=== PATIENT | female | born 1960 | race Two or more races ===

== ENCOUNTER 2024-05-06 11:16 | Inpatient (IN) | payer MEDICAID, OTHER ==
[~2024-05-06] VITALS: Ht 167.6 cm; Wt 79.3 kg
[2024-05-06 12:17] LABS: Basophils # (auto) 0.1 10 ^3/uL (0-0.2); Basophils % (auto) 1.1 % (0.0-2.0); Eosinophils # (auto) 0.4 10 ^3/uL (0-0.8); Eosinophils % (auto) 5.7 % (0.0-7.0); Hemoglobin 10.3 g/dL (12.2-16.2); Lymphocytes # (auto) 1.3 10 ^3/uL (0.4-5.4); Lymphocytes % (auto) 20.9 % (10.0-50.0); Mean Corpuscular Hemoglobin 29.7 pg (28.0-32.0); Mean Corpuscular Hgb Conc. 35.5 g/dL (32.0-36.0); Mean Corpuscular Volume 83.5 fL (80.0-100.0); Monocytes # (auto) 0.3 10 ^3/uL (0-1.3); Monocytes % (auto) 4.6 % (0.0-12.0); Neutrophils # (auto) 4.2 10 ^3/uL (1.6-8.6); Neutrophils % (auto) 67.7 % (37.0-80.0); Red Blood Cells 3.48 10^6/uL (4.0-5.20); Red Cell Distribution Width 14.4 % (11.8-14.3); White Blood Cell 6.2 10^3/uL (4.4-10.8)
[2024-05-06 12:51] LABS: Alanine Aminotransferase 19 U/L (7-40); Albumin 2.9 g/dL (3.2-4.8); Alkaline Phosphatase 172 U/L (46-116); Anion Gap 4 (5-15); Aspartate Aminotransferase 17 U/L (13-40); BUN/Creatinine Ratio 13.6 (10.0-20.0); Bilirubin, Total 0.8 mg/dL (0.2-1.0); Blood Urea Nitrogen 25 mg/dL (9-23); CRP High Sensitivity 0.08 mg/dL (<1.0); Calcium 8.5 mg/dL (8.5-10.1); Carbon Dioxide 28 mmol/L (20-30); Chloride 105 mmol/L (98-107); Erythrocyte Sedimentation Rate 70 mm/hr (0-20); Glucose 346 mg/dL (74-106); Potassium 4.4 mmol/L (3.5-5.1); Sodium 137 mmol/L (136-145)
[2024-05-06 12:52] LABS: Total Protein 5.1 g/dL (5.7-8.2)
[2024-05-06] MEDS: FUROSEMIDE 40 MG/4 ML VIAL IV ONE (14:15)
[2024-05-06] MEDS: NITROGLYCERIN 0.4 MG SL TAB SL ONE (14:31)
[2024-05-06] MEDS: hydrALAZINE HCL 20 MG/ML VL IV ONE (15:58)
[2024-05-06] MEDS ORDERED: DEXTROSE (50%) 50ML SYRG IV PRN (18:00)
[2024-05-06] MEDS ORDERED: ONDANSETRON HCL 4 MG/2 ML VIAL IV PRN (18:00)
[2024-05-06] MEDS ORDERED: HYDROcodone-ACET 5/325MG TAB PO PRN (18:00)
[2024-05-06] MEDS ORDERED: ACETAMINOPHEN 325 MG TAB PO PRN (18:00)
[2024-05-06] MEDS ORDERED: MORPHINE SULFATE INJ 2 MG/ml SYRG IV PRN (18:15)
[2024-05-06] MEDS ORDERED: NITROGLYCERIN 0.4 MG SL TAB SL PRN (18:15)
[2024-05-06] MEDS: ACCU-CHEK COMFORT CURVE STRIP VI SCH (20:00)
[2024-05-06] MEDS ORDERED: InsuLIN REG 1unit/0.01ml Soln (100units/ml) SC SCH (20:00)
[2024-05-06] MEDS ORDERED: IBUPROFEN 600 MG TAB PO PRN (20:15)
[2024-05-06 20:56] VITALS: PULSE 89; RESP 20; O2SAT 98
[2024-05-06] MEDS: METOPROLOL TARTRATE 25 MG TAB PO SCH (22:12)
[2024-05-06] MEDS: SODIUM CHLOR 0.9% PF (SALINE LOCK) 10ML VIAL/SYR IV SCH (22:13)
[2024-05-06] MEDS: ATORVASTATIN 20 MG TAB PO SCH (22:13)
[2024-05-06] MEDS ORDERED: AMLO1TAB23 PO (22:24)
[2024-05-06] MEDS ORDERED: BENA40TA83 PO (22:24)
[2024-05-06] MEDS ORDERED: FURO20TA3 PO (22:24)
[2024-05-06 22:25] VITALS: BP 214/63; PULSE 79; RESP 22; TEMP 98.2; O2SAT 99
[2024-05-06] MEDS ORDERED: METF-370 PO (22:26)
[2024-05-06 22:54] VITALS: BP 152/57
[2024-05-06] MEDS: InsuLIN REG 1unit/0.01ml Soln (100units/ml) SC SCH (23:10)
[2024-05-07] VITALS (10 sets, daily range): BP systolic 124–197; BP diastolic 56–79; PULSE 50–66; RESP 18–20; TEMP 97.5–98.1; O2SAT 96–99
[2024-05-07] MEDS: hydrALAZINE HCL 20 MG/ML VL IV PRN (01:20)
[2024-05-07] MEDS: hydrALAZINE HCL 20 MG/ML VL IV ONE (02:15)
[2024-05-07] MEDS: cloNIDine HCL 0.1 MG TAB PO ONE (05:57)
[2024-05-07 06:19] LABS: Basophils # (auto) 0.1 10 ^3/uL (0-0.2); Basophils % (auto) 0.9 % (0.0-2.0); Eosinophils # (auto) 0.5 10 ^3/uL (0-0.8); Eosinophils % (auto) 6.7 % (0.0-7.0); Hematocrit 28.5 % (36.0-46.0); Hemoglobin 10.3 g/dL (12.2-16.2); Lymphocytes # (auto) 1.3 10 ^3/uL (0.4-5.4); Lymphocytes % (auto) 16.5 % (10.0-50.0); Mean Corpuscular Hemoglobin 29.9 pg (28.0-32.0); Mean Corpuscular Hgb Conc. 36.2 g/dL (32.0-36.0); Mean Corpuscular Volume 82.6 fL (80.0-100.0); Monocytes # (auto) 0.5 10 ^3/uL (0-1.3); Monocytes % (auto) 5.9 % (0.0-12.0); Neutrophils # (auto) 5.4 10 ^3/uL (1.6-8.6); Nucleated Red Blood Cells % 0.1 %; Red Blood Cells 3.45 10^6/uL (4.0-5.20); Red Cell Distribution Width 14.4 % (11.8-14.3); White Blood Cell 7.7 10^3/uL (4.4-10.8)
[2024-05-07 06:31] LABS: Alanine Aminotransferase 14 U/L (7-40); Albumin 2.9 g/dL (3.2-4.8); Alkaline Phosphatase 151 U/L (46-116); Anion Gap 7 (5-15); Aspartate Aminotransferase 12 U/L (13-40); BUN/Creatinine Ratio 13.3 (10.0-20.0); Bilirubin, Total 0.8 mg/dL (0.2-1.0); Blood Urea Nitrogen 20 mg/dL (9-23); Carbon Dioxide 27 mmol/L (20-30); Chloride 108 mmol/L (98-107); Glucose 127 mg/dL (74-106); Potassium 3.4 mmol/L (3.5-5.1); Sodium 142 mmol/L (136-145); Total Protein 5.4 g/dL (5.7-8.2)
[2024-05-07] MEDS: ASPirin 81 mg TAB PO SCH (10:02)
[2024-05-07] MEDS: amLODIPine BESYLATE 5 MG TAB PO SCH (10:02)
[2024-05-07] MEDS: POTASSIUM EFFERVESENT TAB 25 MEQ GT ONE (10:04)
[2024-05-07] MEDS: FUROSEMIDE 40 MG/4 ML VIAL IV SCH ×2 (10:05→22:53)
[2024-05-07 11:42] LABS: % Iron Saturation 26.4 % (15-50)
[2024-05-07] MEDS: ERGOCALCIFEROL 50,000 UNIT(1.25MG) CAP PO SCH (11:45)
[2024-05-07 13:31] LABS: Urine Bacteria None Seen /hpf (None Seen)
[2024-05-07 13:44] LABS: Urine Blood Negative /uL (Negative); Urine Clarity Clear (Clear); Urine Color Light-Yellow (Yellow); Urine Protein, UAD 2+ (Negative); Urine Specific Gravity 1.007 (1.001-1.035); Urine Urobilinogen Normal (Negative); Urine WBC 3 /hpf (0 - 5)
[2024-05-07 13:49] LABS: Sodium Urine 97 mmol/L (40-220)
[2024-05-07 13:55] LABS: Amphetamine Screen, Urine Neg (NEGATIVE); Barbiturate Scree,Urine Neg (NEGATIVE); Benzodiazephine Screen, Urine Neg (NEGATIVE)
[2024-05-07 13:56] LABS: Cannabinoid Screen, Urine Neg (NEGATIVE); Cocaine Screen, Urine Neg (NEGATIVE); Creatinine, Urine 27.43 mg/dL (30.0-125.0); Opiate Scree,Urine Neg (NEGATIVE); Phencyclidine Screen, Urine Neg (NEGATIVE)
[2024-05-07 14:00] LABS: Protein, Urine 304.5 mg/dL (0.0-11.9)
[2024-05-07] MEDS: COLCHICINE 0.6 MG CAP PO SCH (22:00)
[2024-05-07] MEDS: DOCUSATE SOD 100 MG CAP PO PRN (22:41)
[2024-05-08 01:00] VITALS: BP 148/61; PULSE 61; RESP 18; TEMP 97.6; O2SAT 99
[2024-05-08 05:00] VITALS: BP 139/50; PULSE 58; RESP 18; TEMP 97.8; O2SAT 96
[2024-05-08 06:08] LABS: Anion Gap 5 (5-15); Calcium 8.7 mg/dL (8.5-10.1); Carbon Dioxide 28 mmol/L (20-30); Chloride 107 mmol/L (98-107); Potassium 3.5 mmol/L (3.5-5.1); Sodium 140 mmol/L (136-145)
[2024-05-08 06:14] LABS: BUN/Creatinine Ratio 15.4 (10.0-20.0); Blood Urea Nitrogen 23 mg/dL (9-23); Glucose 96 mg/dL (74-106)
[2024-05-08 06:26] LABS: Basophils # (auto) 0.1 10 ^3/uL (0-0.2); Eosinophils # (auto) 0.6 10 ^3/uL (0-0.8); Eosinophils % (auto) 8.7 % (0.0-7.0); Hematocrit 26.6 % (36.0-46.0); Hemoglobin 9.5 g/dL (12.2-16.2); Lymphocytes # (auto) 1.8 10 ^3/uL (0.4-5.4); Lymphocytes % (auto) 27.3 % (10.0-50.0); Mean Corpuscular Hemoglobin 29.6 pg (28.0-32.0); Mean Corpuscular Hgb Conc. 35.6 g/dL (32.0-36.0); Mean Corpuscular Volume 83.2 fL (80.0-100.0); Monocytes # (auto) 0.3 10 ^3/uL (0-1.3); Neutrophils # (auto) 3.9 10 ^3/uL (1.6-8.6); Nucleated Red Blood Cells % 0.1 %; Red Cell Distribution Width 14.5 % (11.8-14.3); White Blood Cell 6.7 10^3/uL (4.4-10.8)
[2024-05-08 09:00] VITALS: BP 164/62; PULSE 61; RESP 18; TEMP 97.6; O2SAT 100
[2024-05-08] MEDS: VALSARTAN 80 MG TAB PO SCH (09:04)
[2024-05-08 09:18] LABS: Hepatitis B Surface Antigen Negative (Negative)
[2024-05-08 09:40] LABS: Hepatitis C Antibody Negative (Negative)
[2024-05-08] MEDS: TAMSULOSIN HYDROCHLORIDE 0.4 MG CAP PO ONE (11:15)
[2024-05-08] MEDS: VALSARTAN 80 MG TAB PO ONE (11:15)
[2024-05-08] MEDS: diphenhdrAMINE HCL 50 MG/1 ML VL IV PRN (12:05)
[2024-05-08 13:00] VITALS: BP 179/60; PULSE 55; RESP 18; TEMP 97.5; O2SAT 100
[2024-05-08 17:00] VITALS: BP 138/48; PULSE 65; RESP 18; TEMP 97.4; O2SAT 100
[2024-05-08] MEDS: TAMSULOSIN HYDROCHLORIDE 0.4 MG CAP PO SCH (17:52)
[2024-05-08 21:00] VITALS: BP 128/61; PULSE 66; RESP 20; TEMP 97.5; O2SAT 97
[2024-05-08] MEDS: CARVEDILOL 3.125 MG TAB PO SCH (22:57)
[2024-05-09] VITALS (7 sets, daily range): BP systolic 118–152; BP diastolic 41–69; PULSE 50–71; RESP 18–19; TEMP 36.7; O2SAT 90–99
[2024-05-09 06:31] LABS: Basophils # (auto) 0.1 10 ^3/uL (0-0.2); Basophils % (auto) 1.1 % (0.0-2.0); Eosinophils # (auto) 0.5 10 ^3/uL (0-0.8); Eosinophils % (auto) 6.9 % (0.0-7.0); Hematocrit 28.7 % (36.0-46.0); Hemoglobin 10.2 g/dL (12.2-16.2); Lymphocytes % (auto) 28.9 % (10.0-50.0); Mean Corpuscular Hemoglobin 29.7 pg (28.0-32.0); Mean Corpuscular Hgb Conc. 35.6 g/dL (32.0-36.0); Mean Corpuscular Volume 83.4 fL (80.0-100.0); Monocytes # (auto) 0.4 10 ^3/uL (0-1.3); Monocytes % (auto) 5.4 % (0.0-12.0); Neutrophils # (auto) 4.1 10 ^3/uL (1.6-8.6); Neutrophils % (auto) 57.7 % (37.0-80.0); Nucleated Red Blood Cells % 0.4 %; Red Blood Cells 3.44 10^6/uL (4.0-5.20)
[2024-05-09 06:50] LABS: Anion Gap 7 (5-15); Calcium 8.4 mg/dL (8.5-10.1); Carbon Dioxide 28 mmol/L (20-30); Chloride 102 mmol/L (98-107); Potassium 3.5 mmol/L (3.5-5.1); Sodium 137 mmol/L (136-145)
[2024-05-09 06:56] LABS: BUN/Creatinine Ratio 17.3 (10.0-20.0); Blood Urea Nitrogen 30 mg/dL (9-23); Glucose 128 mg/dL (74-106); Triglycerides 145 mg/dL (< 150)
[2024-05-09 06:57] LABS: LDL Cholesterol 99 mg/dL (< 100)
[2024-05-09 06:58] LABS: Cholesterol 175 mg/dL (< 200); HDL Cholesterol 47 mg/dL (40-59)
[2024-05-09] MEDS: VALSARTAN 80 MG TAB PO SCH (08:41)
[2024-05-09 11:28] LABS: Folate (Folic Acid) 11.55 ng/mL (>5.38)
[2024-05-09] MEDS ORDERED: FURO40TA4 PO (13:20)
[2024-05-09] MEDS ORDERED: ATOR20TA50 PO (13:20)
[2024-05-09] MEDS ORDERED: ASPI-325 PO (13:20)
[2024-05-09] MEDS ORDERED: TAMS-35 PO (13:20)
[2024-05-09] MEDS ORDERED: CARV-214 PO (13:20)
[2024-05-09] MEDS ORDERED: ERGO1CAP23 PO (13:20)
[2024-05-09] MEDS ORDERED: VALS1TAB57 PO (13:20)
== END 2024-05-09 12:30 | disposition home or self-care (01) | DRG 194 ==
LOC: ER 11:16 → TELE 18:17 → TELE-WESTW 18:17 → UNDODEPER 05-07 00:25 → WEST WING 05-08 00:08
PROVIDERS: ADMIT Internal Medicine; ATTEND Emergency Medicine
DX: I11.0 Hypertensive heart disease with heart failure (principal); N17.0 Acute kidney failure with tubular necrosis; I31.39 Other pericardial effusion (noninflammatory); E44.0 Moderate protein-calorie malnutrition; E88.09 Other disorders of plasma-protein metabolism, not elsewhere classified; E11.21 Type 2 diabetes mellitus with diabetic nephropathy; D64.9 Anemia, unspecified; E11.65 Type 2 diabetes mellitus with hyperglycemia; I16.0 Hypertensive urgency; I50.31 Acute diastolic (congestive) heart failure; N20.0 Calculus of kidney; E55.9 Vitamin D deficiency, unspecified; E87.6 Hypokalemia; E78.5 Hyperlipidemia, unspecified; Z83.3 Family history of diabetes mellitus; Z79.899 Other long term (current) drug therapy; Z68.27 Body mass index [BMI] 27.0-27.9, adult
CPT/HCPCS: 36415; 71045; 76775; 80048; 80053; 80061; 80307; 81001; 82306; 82570; 82607; 82728; 82746; 82962; 83036; 83540; 83550; 83605; 83735; 83880; 83935; 84156; 84300; 84443; 84484; 85025; 85652; 86141; 86803; 86850; 86900; 86901; 87340; 93306; 93970; 96374; 96375; 96376; G0378; J1815

== ENCOUNTER 2024-08-05 13:45 | Emergency (ER) | payer SELFPAY ==
[~2024-08-05] VITALS: Ht 160 cm; Wt 81.9 kg
[~2024-08-05 13:45] MED LIST: ASPI-325 PO; ATOR20TA50 PO; BENA40TA83 PO; CARV-214 PO; ERGO1CAP23 PO; FURO40TA4 PO; METF-370 PO; TAMS-35 PO; VALS1TAB57 PO
[2024-08-05] MEDS: cloNIDine HCL 0.1 MG TAB PO ONE (14:18)
[2024-08-05 14:26] VITALS: PULSE 67; RESP 16; O2SAT 97
[2024-08-05 15:13] LABS: Basophils # (auto) 0.1 10 ^3/uL (0-0.2); Basophils % (auto) 0.9 % (0.0-2.0); Eosinophils # (auto) 0.4 10 ^3/uL (0-0.8); Hematocrit 25.8 % (36.0-46.0); Hemoglobin 9.1 g/dL (12.2-16.2); Lymphocytes # (auto) 1.1 10 ^3/uL (0.4-5.4); Lymphocytes % (auto) 18.6 % (10.0-50.0); Mean Corpuscular Hemoglobin 30.6 pg (28.0-32.0); Mean Corpuscular Hgb Conc. 35.4 g/dL (32.0-36.0); Mean Corpuscular Volume 86.5 fL (80.0-100.0); Monocytes # (auto) 0.4 10 ^3/uL (0-1.3); Neutrophils # (auto) 4.1 10 ^3/uL (1.6-8.6); Neutrophils % (auto) 67.5 % (37.0-80.0); Platelet Count (auto) 133 10^3/uL (140-450); Red Blood Cells 2.99 10^6/uL (4.0-5.20)
[2024-08-05 15:31] LABS: Chloride 109 mmol/L (98-107); Potassium 4.1 mmol/L (3.5-5.1); Sodium 143 mmol/L (136-145)
[2024-08-05 15:32] LABS: Anion Gap 5 (5-15); Calcium 8.3 mg/dL (8.7-10.4); Carbon Dioxide 29 mmol/L (20-31)
[2024-08-05 15:37] LABS: BUN/Creatinine Ratio 14.1 (10.0-20.0); Blood Urea Nitrogen 26 mg/dL (9-23); Glucose 132 mg/dL (74-106)
[2024-08-05 16:19] VITALS: BP 171/54; PULSE 63; RESP 18; O2SAT 94
== END 2024-08-05 16:34 | disposition home or self-care (01) ==
LOC: ER 13:45
DX: I16.0 Hypertensive urgency (principal); E11.9 Type 2 diabetes mellitus without complications; E78.5 Hyperlipidemia, unspecified; Z79.899 Other long term (current) drug therapy; Z79.82 Long term (current) use of aspirin
CPT/HCPCS: 36415; 80048; 85025

== ENCOUNTER 2024-08-12 08:55 | Inpatient (IN) | payer MEDICAID ==
[~2024-08-12] VITALS: Ht 160 cm; Wt 83.0 kg
[2024-08-12 10:30] LABS: Alkaline Phosphatase 130 U/L (46-116)
[2024-08-12 10:31] LABS: Alanine Aminotransferase 17 U/L (7-40); Albumin 3.3 g/dL (3.2-4.8); Anion Gap 2 (5-15); Aspartate Aminotransferase 22 U/L (13-40); BUN/Creatinine Ratio 11.5 (10.0-20.0); Bilirubin, Total 1.3 mg/dL (0.2-1.0); Blood Urea Nitrogen 22 mg/dL (9-23); Calcium 8.6 mg/dL (8.7-10.4); Carbon Dioxide 30 mmol/L (20-31); Chloride 108 mmol/L (98-107); Glucose 190 mg/dL (74-106); Lipase 31 U/L (12-53); Potassium 4.1 mmol/L (3.5-5.1); Sodium 140 mmol/L (136-145); Total Protein 5.7 g/dL (5.7-8.2)
[2024-08-12 10:33] LABS: Basophils # (auto) 0.1 10 ^3/uL (0-0.2); Basophils % (auto) 0.9 % (0.0-2.0); Eosinophils # (auto) 0.3 10 ^3/uL (0-0.8); Eosinophils % (auto) 5.7 % (0.0-7.0); Hematocrit 27.7 % (36.0-46.0); Hemoglobin 9.9 g/dL (12.2-16.2); Lymphocytes # (auto) 0.9 10 ^3/uL (0.4-5.4); Lymphocytes % (auto) 16.4 % (10.0-50.0); Mean Corpuscular Hgb Conc. 35.9 g/dL (32.0-36.0); Mean Corpuscular Volume 86.3 fL (80.0-100.0); Monocytes # (auto) 0.3 10 ^3/uL (0-1.3); Neutrophils # (auto) 4.1 10 ^3/uL (1.6-8.6); Platelet Count (auto) 170 10^3/uL (140-450); Red Blood Cells 3.21 10^6/uL (4.0-5.20); Red Cell Distribution Width 14.6 % (11.8-14.3); White Blood Cell 5.7 10^3/uL (4.4-10.8)
[2024-08-12] MEDS: NITROGLYCERIN 0.4 MG SL TAB SL ONE (10:42)
[2024-08-12] MEDS: hydrALAZINE HCL 20 MG/ML VL IV ONE (12:39)
[2024-08-12 12:58] LABS: Urine Bacteria None Seen /hpf (None Seen)
[2024-08-12 13:30] LABS: Urine Blood 2+ /uL (Negative); Urine Clarity Clear (Clear); Urine Color Light-Yellow (Yellow); Urine Protein, UAD 3+ (Negative); Urine Urobilinogen Normal (Negative); Urine WBC 19 /hpf (0 - 5)
[2024-08-12] MEDS: FUROSEMIDE 40 MG/4 ML VIAL IV ONE (13:33)
[2024-08-12] MEDS ORDERED: MORPHINE SULFATE INJ 2 MG/ml SYRG IV PRN (15:00)
[2024-08-12] MEDS ORDERED: DEXTROSE (50%) 50ML SYRG IV PRN (15:00)
[2024-08-12] MEDS ORDERED: NITROGLYCERIN 0.4 MG SL TAB SL PRN (15:00)
[2024-08-12] MEDS: ACCU-CHEK COMFORT CURVE STRIP VI SCH (17:21)
[2024-08-12] MEDS: InsuLIN REG 1unit/0.01ml Soln (100units/ml) SC SCH (17:24)
[2024-08-12] MEDS: FUROSEMIDE 40 MG/4 ML VIAL IV SCH (17:25)
[2024-08-12] MEDS: hydrALAZINE HCL 20 MG/ML VL IV PRN (17:45)
[2024-08-12 18:28] VITALS: BP 183/80; PULSE 80; PULSE 81; PULSE 86; RESP 18; RESP 20; TEMP 97.3; TEMP 97.9; O2SAT 97; O2SAT 98
[2024-08-12] MEDS: NIFEdipine ER 30 MG TAB PO ONE (19:09)
[2024-08-12] MEDS: PANTOPRAZOLE 40 MG TAB PO ONE (19:09)
[2024-08-12 19:34] LABS: Erythrocyte Sedimentation Rate 51 mm/hr (0-20)
[2024-08-12 20:00] VITALS: PULSE 85; RESP 18; O2SAT 97
[2024-08-12 20:51] LABS: Magnesium 2.2 mg/dL (1.6-2.6)
[2024-08-12 20:52] LABS: Phosphorus 4.3 mg/dL (2.4-5.1)
[2024-08-12 21:00] VITALS: BP 161/72; PULSE 85; RESP 18; TEMP 97.6; O2SAT 97
[2024-08-12 21:33] LABS: % Iron Saturation 28.5 % (15-50)
[2024-08-12] MEDS ORDERED: LABETALOL HCL 200 MG TAB PO SCH (22:00)
[2024-08-12] MEDS: cloNIDine HCL 0.1 MG TAB PO SCH (22:41)
[2024-08-13] VITALS (9 sets, daily range): BP systolic 134–164; BP diastolic 59–78; PULSE 65–78; RESP 17–18; TEMP 96.6–98.5; O2SAT 93–96
[2024-08-13] MEDS: PANTOPRAZOLE 40 MG TAB PO SCH (05:18)
[2024-08-13 06:10] LABS: Chloride 108 mmol/L (98-107); Potassium 3.8 mmol/L (3.5-5.1); Sodium 140 mmol/L (136-145)
[2024-08-13 06:11] LABS: Anion Gap 6 (5-15); Calcium 8.7 mg/dL (8.7-10.4); Carbon Dioxide 26 mmol/L (20-31)
[2024-08-13 06:16] LABS: BUN/Creatinine Ratio 12.1 (10.0-20.0); Blood Urea Nitrogen 24 mg/dL (9-23); Glucose 141 mg/dL (74-106)
[2024-08-13] MEDS: NIFEdipine ER 30 MG TAB PO SCH (09:16)
[2024-08-13] MEDS ORDERED: NIFEdipine ER 30 MG TAB PO SCH (10:00)
[2024-08-13] MEDS: POTASSIUM CHL 10 Meq TABLET PO SCH (10:39)
[2024-08-13] MEDS: FUROSEMIDE 40 MG/4 ML VIAL IV SCH (17:20)
[2024-08-13] MEDS: cloNIDine HCL 0.1 MG TAB PO SCH (22:38)
[2024-08-14] VITALS (11 sets, daily range): BP systolic 118–152; BP diastolic 52–71; PULSE 59–78; RESP 16–18; TEMP 97.4–98.3; O2SAT 92–98
[2024-08-14 07:33] LABS: Chloride 108 mmol/L (98-107); Sodium 140 mmol/L (136-145)
[2024-08-14 07:34] LABS: Anion Gap 6 (5-15); Calcium 8.6 mg/dL (8.7-10.4); Carbon Dioxide 26 mmol/L (20-31)
[2024-08-14 07:39] LABS: BUN/Creatinine Ratio 11.2 (10.0-20.0); Blood Urea Nitrogen 29 mg/dL (9-23); Glucose 93 mg/dL (74-106)
[2024-08-14 08:46] LABS: Hepatitis B Surface Antigen Negative (Negative)
[2024-08-14 09:08] LABS: Hepatitis C Antibody Negative (Negative)
[2024-08-14] MEDS: ALBUTEROL SULF 2.5 MG/0.5ML(0.5%) NEB SOLN NEB SCH (18:51)
[2024-08-14] MEDS: IPRATROPIUM BROM 0.5 MG/2.5ML INH SOL NEB SCH (18:51)
[2024-08-15] VITALS (13 sets, daily range): BP systolic 144–171; BP diastolic 57–80; PULSE 57–86; RESP 15–18; TEMP 97.7–98.3; O2SAT 17–100
[2024-08-15] MEDS ORDERED: FUROSEMIDE 20 MG/2 ML VIAL IV SCH (10:00)
[2024-08-15] MEDS: FUROSEMIDE 20 MG TAB PO SCH (10:56)
[2024-08-15 12:25] LABS: Anion Gap 6 (5-15); Carbon Dioxide 27 mmol/L (20-31); Chloride 108 mmol/L (98-107); Potassium 4.5 mmol/L (3.5-5.1); Sodium 141 mmol/L (136-145)
[2024-08-15 12:26] LABS: Calcium 8.2 mg/dL (8.7-10.4)
[2024-08-15 12:31] LABS: BUN/Creatinine Ratio 12.5 (10.0-20.0); Blood Urea Nitrogen 33 mg/dL (9-23); Glucose 148 mg/dL (74-106)
[2024-08-15] MEDS: FUROSEMIDE 100 MG/10ML VIAL IV SCH (17:34)
[2024-08-16] VITALS (14 sets, daily range): BP systolic 148–166; BP diastolic 57–63; PULSE 82–96; RESP 14–19; TEMP 97.6–98.7; O2SAT 90–100
[2024-08-16] MEDS: hydrALAZINE HCL 25 MG TAB PO SCH (23:30)
[2024-08-17] VITALS (19 sets, daily range): BP systolic 145–166; BP diastolic 35–65; PULSE 84–105; RESP 14–19; TEMP 97.7–98.2; O2SAT 90–99
[2024-08-17 05:39] LABS: Anion Gap 7 (5-15); Carbon Dioxide 26 mmol/L (20-31); Chloride 110 mmol/L (98-107); Potassium 4.1 mmol/L (3.5-5.1); Sodium 143 mmol/L (136-145)
[2024-08-17 05:41] LABS: Calcium 8.5 mg/dL (8.7-10.4)
[2024-08-17 05:45] LABS: Blood Urea Nitrogen 33 mg/dL (9-23); Glucose 120 mg/dL (74-106)
[2024-08-17] MEDS: NIFEdipine ER 30 MG TAB PO SCH (10:47)
[2024-08-17 20:49] LABS: Creatinine, Urine 61.42 mg/dL (30.0-125.0)
[2024-08-17 20:52] LABS: Protein, Urine 475.5 mg/dL (1-14)
[2024-08-17] MEDS: hydrALAZINE HCL 25 MG TAB PO SCH (20:52)
[2024-08-18] VITALS (13 sets, daily range): BP systolic 140–153; BP diastolic 50–61; PULSE 80–94; RESP 8–20; TEMP 97.8–98.2; O2SAT 90–100
[2024-08-18 07:21] LABS: Anion Gap 7 (5-15); Carbon Dioxide 26 mmol/L (20-31); Chloride 110 mmol/L (98-107); Potassium 4.2 mmol/L (3.5-5.1); Sodium 143 mmol/L (136-145)
[2024-08-18 07:23] LABS: Calcium 8.7 mg/dL (8.7-10.4)
[2024-08-18 07:24] LABS: INR 1.08 (0.9-1.15); Partial Thromboplastin Time 28.8 SEC (24.5-34.5); Prothrombin Time 11.4 sec (9.3-11.8)
[2024-08-18 07:28] LABS: BUN/Creatinine Ratio 12.3 (10.0-20.0); Blood Urea Nitrogen 34 mg/dL (9-23); Glucose 101 mg/dL (74-106)
[2024-08-18] MEDS: LIDOCAINE 2%HCL (LOCAL ANESTH.) INJ 10ml MDV ONE (07:45)
[2024-08-18 08:06] LABS: Complement C3 95 mg/dL (82-167); Immunoglobulin A 325 mg/dL (87-352); Immunoglobulin G, Serum 819 mg/dL (586-1602); Immunoglobulin M 155 mg/dL (26-217)
[2024-08-18] MEDS: MIDAZOLAM HCL 2MG/2ML 2ml VIAL (1mg/ml) ONE (08:09)
[2024-08-18] MEDS: fentaNYL CITRATE 100 MCG/2 ML VL ONE (08:09)
[2024-08-19] VITALS (14 sets, daily range): BP systolic 139–161; BP diastolic 46–76; PULSE 89–103; RESP 8–28; TEMP 97.6–99.3; O2SAT 88–100
[2024-08-19 07:06] LABS: Albumin 2.4 g/dL (2.9-4.4); Alpha-1-Globulin 0.3 g/dL (0.0-0.4); Alpha-2-Globulin 0.6 g/dL (0.4-1.0); Gamma Globulin 0.9 g/dL (0.4-1.8); Globulin Total 2.8 g/dL (2.2-3.9); Protein Total Serum 5.2 g/dL (6.0-8.5)
[2024-08-19 08:04] LABS: Chloride 111 mmol/L (98-107); Potassium 4.5 mmol/L (3.5-5.1); Sodium 145 mmol/L (136-145)
[2024-08-19 08:05] LABS: Anion Gap 8 (5-15); Calcium 8.5 mg/dL (8.7-10.4); Carbon Dioxide 26 mmol/L (20-31)
[2024-08-19 08:10] LABS: BUN/Creatinine Ratio 15.9 (10.0-20.0); Blood Urea Nitrogen 41 mg/dL (9-23); Glucose 108 mg/dL (74-106)
[2024-08-19 15:07] LABS: Anti-Centromere B Antibody <0.2 AI (0.0-0.9); Anti-Jo-1 Antibody <0.2 AI (0.0-0.9); Anti-dsDNA Antibody <1 IU/mL (0-9); Antichromatin Antibody <0.2 AI (0.0-0.9); Antiscleroderma-70 Antibody <0.2 AI (0.0-0.9); RNP Antibody <0.2 AI (0.0-0.9); Sjogren's Anti-SS-A Antibody <0.2 AI (0.0-0.9); Sjogren's Anti-SS-B Antibody <0.2 AI (0.0-0.9); Smith Antibody <0.2 AI (0.0-0.9)
[2024-08-19 17:06] LABS: Antimyeloperoxidase (MPO) Ab <0.2 units (0.0-0.9); Antiproteinase 3 (PR-3) Ab <0.2 units (0.0-0.9)
[2024-08-19 18:11] LABS: Basophils # (auto) 0.1 10 ^3/uL (0-0.2); Basophils % (auto) 1.1 % (0.0-2.0); Eosinophils # (auto) 0.2 10 ^3/uL (0-0.8); Eosinophils % (auto) 2.4 % (0.0-7.0); Hematocrit 28.3 % (36.0-46.0); Hemoglobin 9.7 g/dL (12.2-16.2); Lymphocytes % (auto) 16.4 % (10.0-50.0); Mean Corpuscular Hemoglobin 30.5 pg (28.0-32.0); Mean Corpuscular Hgb Conc. 34.5 g/dL (32.0-36.0); Mean Corpuscular Volume 88.4 fL (80.0-100.0); Monocytes # (auto) 0.4 10 ^3/uL (0-1.3); Monocytes % (auto) 6.2 % (0.0-12.0); Neutrophils # (auto) 4.7 10 ^3/uL (1.6-8.6); Neutrophils % (auto) 73.9 % (37.0-80.0); Nucleated Red Blood Cells % 0.1 %; Platelet Count (auto) 155 10^3/uL (140-450); Red Cell Distribution Width 14.6 % (11.8-14.3); White Blood Cell 6.4 10^3/uL (4.4-10.8)
[2024-08-19] MEDS: hydrALAZINE HCL 25 MG TAB PO SCH (23:33)
[2024-08-20] VITALS (11 sets, daily range): BP systolic 129–161; BP diastolic 58–65; PULSE 80–93; RESP 16–20; TEMP 97.8–98.3; O2SAT 95–100
[2024-08-20 05:37] LABS: Anion Gap 8 (5-15); Carbon Dioxide 28 mmol/L (20-31); Chloride 108 mmol/L (98-107); Potassium 4.1 mmol/L (3.5-5.1); Sodium 144 mmol/L (136-145)
[2024-08-20 05:39] LABS: Calcium 8.7 mg/dL (8.7-10.4)
[2024-08-20 05:43] LABS: BUN/Creatinine Ratio 13.4 (10.0-20.0); Blood Urea Nitrogen 35 mg/dL (9-23); Glucose 105 mg/dL (74-106)
[2024-08-20 09:06] LABS: Kappa Lite Chain Free Serum 90.6 mg/L (3.3-19.4)
[2024-08-20 12:06] LABS: Cytoplasmic (C-ANCA) <1:20 titer (Neg:<1:20); Perinuclear (P-ANCA) <1:20 titer (Neg:<1:20)
[2024-08-20] MEDS ORDERED: FURO1TAB31 PO (13:15)
[2024-08-20] MEDS ORDERED: NIFE90TA75 PO (13:15)
[2024-08-20] MEDS ORDERED: METF-370 PO (13:15)
== END 2024-08-20 19:25 | disposition home or self-care (01) | DRG 469 ==
LOC: ER 08:55 → TELE 15:07 → TELE-WESTW 18:19
PROVIDERS: ADMIT Nurse Practitioner Acute Care; ATTEND Nurse Practitioner Acute Care
PROC: 0TB03ZX Excision of Right Kidney, Percutaneous Approach, Diagnostic (ICD-10-PCS; principal; 2024-08-18)
DX: N17.0 Acute kidney failure with tubular necrosis (principal); I31.39 Other pericardial effusion (noninflammatory); J90 Pleural effusion, not elsewhere classified; D63.1 Anemia in chronic kidney disease; E11.22 Type 2 diabetes mellitus with diabetic chronic kidney disease; I16.0 Hypertensive urgency; I12.9 Hypertensive chronic kidney disease with stage 1 through stage 4 chronic kidney disease, or unspecified chronic kidney disease; K21.9 Gastro-esophageal reflux disease without esophagitis; N18.4 Chronic kidney disease, stage 4 (severe); E66.9 Obesity, unspecified; E78.5 Hyperlipidemia, unspecified; I51.7 Cardiomegaly; Z87.441 Personal history of nephrotic syndrome; Z68.32 Body mass index [BMI] 32.0-32.9, adult; Z83.3 Family history of diabetes mellitus; Z79.82 Long term (current) use of aspirin; Z79.899 Other long term (current) drug therapy; Z55.6 Problems related to health literacy; Z91.199 Patient's noncompliance with other medical treatment and regimen due to unspecified reason
CPT/HCPCS: 10005; 36415; 71045; 71046; 74150; 76604; 76775; 77012; 80048; 80053; 81001; 82306; 82570; 82728; 82784; 82962; 83036; 83516; 83520; 83521; 83540; 83550; 83690; 83735; 83880; 83970; 84100; 84155; 84156; 84165; 84300; 84443; 84484; 84550; 85025; 85610; 85652; 85730; 86141; 86160; 86225; 86235; 86256; 86334; 86431; 86803; 87340; 93005; 93306; 94640; 96374; 96375; 99291; G0378; J1815; J2003; J2250

== ENCOUNTER 2024-08-27 18:10 | Inpatient (IN) | payer MEDICAID ==
[~2024-08-27] VITALS: Ht 154.9 cm; Wt 80.8 kg
[~2024-08-27 18:10] MED LIST changes: +FURO1TAB31 PO; +NIFE90TA75 PO
--- NOTE | 2024-08-27 19:08 | ED.PDOC ---
History of Present Illness HPI Comments 64 y/o F, with a Hx of Hx of DM, HLD, and HTN, is BIBA for c/o lower back, bilateral shoulders, and epigastric abdominal pain, nausea, and vomiting for 1 day. Per EMS report, patient is a Swedish speaker and endorses on unprovoked onset of symptoms, yesterday, that has been progressively worsening since. Lyssa bernal comments on back pain being a "tingling" sensation that radiates to her shoulders in addition to having 1x episode of nausea and vomiting, today, only. Patient vitals were reported to be stable and within normal limits by EMS staff on scene and en route. Patient also is reported to have an upcoming appointment with her PCP for a liver-related issue that she is unable to elaborate on at time of evaluation. Patient endorses on no further relevant or pertinent past medical, surgical, or family Hx in addition to recent stress, injuries, sick contact, travel, spoiled food intake, or substance use/exposure. Patient denies having any diarrhea, constipation, urinary symptoms, weakness, fever, chills, or other associated symptoms or modifiers at this time. Chief Complaint: Back Pain Time Seen by MD: 18:40 Primary Care Provider: UNKNOWN NAME Reviewed Notes: Nurses Notes, School Aide Notes, Medications, Allergies Allergies: Coded Allergies: No Known Drug Allergy (Verified Allergy, Unknown, 05/06/24) Home Meds Active Scripts Furosemide (Lasix) 40 Mg Tab, 40 MG PO BID for 30 Days, #60 TAB 1 Refill Prov:ARNEL SHERIDAN [employer]OOF [employer]EMAN 08/20/24 Nifedipine (Nifedipine Er) 90 Mg Tab, 1 TAB PO DAILY for 30 Days, #30 TAB 5 Refills Prov:ARNEL SHERIDAN [employer]EM[employer] 08/20/24 Metformin Hydrochloride (Metformin Hcl) 500 Mg Tab, 1000 MG PO BID for 30 Days, #120 MG 2 Refills Prov:ARNEL SHERIDAN NP 08/20/24 Furosemide (Furosemide) 40 Mg Tab, 1 TAB PO DAILY for 30 Days, #30 TAB 5 Refills Prov:PATRICIA ADAMS RESIDENT 05/09/24 Valsartan (Valsartan) 80 Mg Tab, 320 MG PO DAILY for 30 Days, #120 TAB Prov:PATRICIA ADAMS RESIDENT 05/09/24 Tamsulosin Hcl (Flomax) 0.4 Mg Cap, 0.4 MG PO QPM for 30 Days, #30 CAP Prov:PATRICIA ADAMS [facility] 05/09/24 Ergocalciferol (VITAMIN D 19133 UNIT) 50,000 [place], [address] UNIT PO Q7D for 30 Days, #10 CAP Prov:PATRICIA ADAMS [facility] 05/09/24 Carvedilol (COREG) 3.125 Mg Tab, 6.25 MG PO Q12HR for 30 Days, #120 TAB Prov:PATRICIA ADAMS [facility] 05/09/24 Atorvastatin Calcium (ATORVASTATIN CALCIUM) 20 Mg Tab, 10 MG PO HS for 30 Days, #15 TAB Prov:PATRICIA ADAMS [facility] 05/09/24 Aspirin (Aspirin Low Dose) 81 Mg Tab, 81 MG PO DAILY for 30 Days, #30 TAB Prov:PATRICIA ADAMS [facility] 05/09/24 Reported Medications Benazepril HCl (Benazepril Hydrochloride) 40 Mg Tab, 40 MG PO DAILY, TAB 05/06/24 Information Source: Patient, Emergency Med Personnel Mode of Arrival: EMS Severity: Moderate Timing: Hours Duration: Since onset Prehospital treatment: 12 Lead EKG, Report Checker Past Medical History PAST MEDICAL HISTORY: DM, High Lipids, HTN Surgical History: Denies all surgeries CANAL BOAT OPERATOR History: 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 History Family History Family History: Reviewed,noncontributory to illness Social History Smoker: Non-Smoker Alcohol: Denies ETOH Use Drugs: Denies Drug Use Lives In: Home Constitutional: denies: chills, diaphoresis, fatigue, fever, malaise, sweats, weakness, others EENTM: denies: blurred vision, double vision, ear bleeding, ear discharge, ear drainage, ear pain, ear ringing, eye pain, eye redness, hearing loss, mouth pain, mouth swelling, nasal discharge, nose bleeding, nose congestion, nose pain, photophobia, tearing, throat pain, throat swelling, voice changes, others Respiratory: denies: cough, hemoptysis, orthopnea, SOB at rest, shortness of breath, SOB with excertion, stridor, wheezing, others Cardiovascular: denies: chest pain, dizzy spells, diaphoresis, Dyspnea on exertion, edema, irregular heart beat, left arm pain, lightheadedness, palpitations, PND, syncope, others Gastrointestinal: reports: abdominal pain, nausea, vomiting; denies: abdomen distended, blood streaked bowels, constipated, diarrhea, dysphagia, difficulty swallowing, hematemesis, melena, poor appetite, poor fluid intake, rectal bleeding, rectal pain, others Genitourinary: denies: abnormal vagina bleeding, burning, dyspareunia, dysuria, flank pain, frequency, hematuria, incontinence, pain, , vagina discharge, urgency, others Neurological: denies: dizziness, fainting, headache, left sided numbness, left sided weakness, numbness, paresthesia, pre-existing deficit, right sided numbness, right sided weakness, seizure, speech problems, tingling, tremors, weakness, others Musculoskeletal: reports: back pain, joint pain (bilateral shoulder); denies: gout, joint swelling, muscle pain, muscle stiffness, neck pain, others Integumetry: denies: bruises, change in color, change in hair/nails, dryness, laceration, lesions, lumps, rash, wounds, others Allergic/Immunocompromised: denies: Difficulty Healing, Frequent Infections, Hives, Itching, others Hematologic/Lymphatic: denies: anemia, blood clots, easy bleeding, easy bruising, swollen glands, others Endocrine: denies: excessive hunger, excessive sweating, excessive thirst, excessive urination, flushing, intolerance to cold, intolerance to heat, unexplained weight gain, unexplained weight loss, others Psychiatric: denies: anxiety, bipolar disorder, depression, hopeless, panic disorder, schizophrenia, sleepless, suicidal, others All Other Systems: Reviewed and Negative Physical Exam General Appearance: Mild Distress, Normal HEENT: Normal ENT Inspection, Pharynx Normal, TMs Normal Neck: Full Range of Motion, Non-Tender, Normal, Normal Inspection Respiratory: Chest Non-Tender, Lungs Clear, No Accessory Muscle Use, No Respiratory Distress, Normal Breath Sounds Cardiovascular: No Edema, No JVD, No Murmur, No Gallop, Normal Peripheral Pulses, Regular Rate/Rhythm Breast Exam: Deferred Gastrointestinal: Epigastric (tender), No Organomegaly, No Pulsatile Mass, Normal Bowel Sounds, Soft, Tenderness (epigastric ) Genitalia: Deferred Pelvic: Deferred Rectal: Deferred Extremities: No calf tenderness, Normal capillary refill, Normal inspection, Normal range of motion, Non-tender, No pedal edema Musculoskeletal : Apperance: Normal Neurologic: Alert, soft hat binder II-XII nml as Tested, No Motor Deficits, Normal Affect, Normal Mood, No Sensory Deficits Cerebellar Function: Normal Reflexes: Normal Skin: Dry, Normal Color, Warm Lymphatic: No Adenopathy Was a procedure done? Was a procedure done?: No EKG EKG : Pulse Rate (adult): 61 [place]: Normal Cardiac Rhythm: NSR Block: None Hypertrophy: None ST: Normal Differential Dx Considerations may include: musculoskeletal pain, fracture, dislocation, gastritis, gastroenteritis, appendicitis, diverticulitis, cholecystitis, cholelithiasis, nephrolithiasis, PUD, spoiled food, UTI, acute abdomen X-Ray, Labs, Meds, VS Vital Signs Date Time Temp Pulse Resp B/P (MAP) Pulse Ox O2 Delivery O2 Flow Rate FiO2 08/27/24 20:45 97.6 88 18 155/61 (92) 100 97.6 08/27/24 20:40 97.4 60 18 111/69 (83) 96 97.4 08/27/24 20:40 60 18 96 Room Air* 0 21 08/27/24 19:08 61 08/27/24 18:30 61 08/27/24 18:12 99.1 63 18 133/69 (90) 99 Lab Test 08/28/24 01:30 Range/Units White Blood Count 7.2 4.4-10.8 10^3/uL Red Blood Count 3.51 L 4.0-5.20 10^6/uL Hemoglobin 10.6 L 12.2-16.2 g/dL Hematocrit 30.0 L 36.0-46.0 % Mean Corpuscular Volume 85.7 80.0-100.0 fL Mean Corpuscular Hemoglobin 30.3 28.0-32.0 pg Mean Corpuscular Hemoglobin Concent 35.3 32.0-36.0 g/dL Red Cell Distribution Width 13.8 11.8-14.3 % Platelet Count 198 140-450 10^3/uL Mean Platelet Volume 10.3 6.9-10.8 fL Neutrophils (%) (Auto) 79.9 37.0-80.0 % Lymphocytes (%) (Auto) 11.5 10.0-50.0 % Monocytes (%) (Auto) 5.0 0.0-12.0 % Eosinophils (%) (Auto) 2.4 0.0-7.0 % Basophils (%) (Auto) 1.2 0.0-2.0 % Neutrophils # (Auto) 5.8 1.6-8.6 10 ^3/uL Lymphocytes # (Auto) 0.8 0.4-5.4 10 ^3/uL Monocytes # (Auto) 0.4 0-1.3 10 ^3/uL Eosinophils # (Auto) 0.2 0-0.8 10 ^3/uL Basophils # (Auto) 0.1 0-0.2 10 ^3/uL Nucleated Red Blood Cells 0.1 % Prothrombin Time Pending Prothrombin Time INR Pending Activated Partial Thromboplast Time Pending Sodium Level Pending Potassium Level Pending Chloride Level Pending Carbon Dioxide Level Pending Anion Gap Pending Blood Urea Nitrogen Pending Creatinine Pending Glomerular Filtration Rate Calc Pending BUN/Creatinine Ratio Pending Serum Glucose Pending Calcium Level Pending Total Bilirubin Pending Aspartate Amino Transferase (AST) Pending Alanine Aminotransferase (ALT) Pending Alkaline Phosphatase Pending Troponin I High Sensitivity Pending B-Type Natriuretic Peptide Pending Total Protein Pending Albumin Pending Lipase Pending Plasma/Serum Blood Alcohol Pending Current Medications Medications (Trade) Dose Ordered Sig/Linda Route Start Time Stop Time Status Last Admin Ketorolac Tromethamine (Toradol Injection) 60 mg ONCE ONCE IM 08/27/24 20:15 08/27/24 20:16 DC 08/27/24 20:37 Pantoprazole Sodium (Protonix Tablet) 40 mg ONCE ONCE PO 08/27/24 20:30 08/27/24 20:32 DC 08/27/24 20:37 [place] [id number] Ph: [phone] DIAGNOSTIC IMAGING Diagnostic Imaging Report : [id number] Signed PATIENT: KARLA PERDUE ACCT: [id number] UNIT: [id number] : 1960 LOC: ER ROOM / BED: / AGE / SEX: 64 / F ADM STATUS: REG ER SERVICE 29 ORDERING PHYSICIAN: ALANNA MORALES MD PROCEDURE(s): THOSP - SPINE THORACIC 2VIEW REASON: BACK PAIN ORDER NUMBER(s): [id number], ACCESSION NUMBER(s): [id number] CLINICAL INDICATION: BACK PAIN TECHNIQUE: 3 radiographic views of the thoracic spine were obtained. Comparison: None FINDINGS/IMPRESSION: There is no evidence of acute fracture or dislocation. Mild degenerative changes. The alignment is anatomical. There is no radiopaque foreign body. ATED BY: JULIAN VAZQUEZ DO DICTATED DATE/TIME: 08/27/242146 SIGNED BY: JULIAN VAZQUEZ DO SIGNED DATE/TIME: 08/27/242146 CC: [place] [id number] Ph: [phone] DIAGNOSTIC IMAGING Diagnostic Imaging Report : [id number] Signed [place] [id number] Ph: [phone] DIAGNOSTIC IMAGING Diagnostic Imaging Report : [id number] Signed PATIENT: KARLA PERDUE ACCT: [id number] UNIT: [id number] : 1960 LOC: ER ROOM / BED: / AGE / SEX: 64 / F ADM STATUS: REG ER SERVICE 29 ORDERING PHYSICIAN: ALANNA MORALES MD PROCEDURE(s): ABPL - CT AB PEL WO CON-NO ORAL OR IV REASON: epigastric pain ORDER NUMBER(s): [id number], ACCESSION NUMBER(s): [id number] Exam: CT CT AB PEL WO CON-NO ORAL OR IV History: epigastric pain Comparison Study: None available at time of dictation. TECHNIQUE: Multidetector CT of the abdomen was performed from lung bases to pubic symphysis. Imaging was performed without IV contrast. Axial, coronal and sagittal multiplanar reformats were obtained from the axial data set by the technologist. Radiation Dose Information: CT Dose: CTDI volume is 8.67 mGy. Dose-length product is 499.21 mGy*cm FINDINGS: Evaluation of solid organs is limited due to lack of intravenous contrast use. Findings: Lung Bases: Small right pleural effusion. left pleural effusion.. . Moderate pericardial effusion. Liver: The liver is normal in size. No focal lesions. Gallbladder and Biliary Tree: Pericholecystic fluid. No calcified gallstones visualized. Findings may be secondary to right heart failure. Spleen: Unremarkable Pancreas: The pancreas is grossly normal in appearance. Adrenal Glands: Unremarkable Kidneys: Kidneys are grossly normal without calculi or hydronephrosis. Bladder: Grossly unremarkable for degree of distention. Bowel: The stomach is grossly normal in appearance. Small bowel and colon are normal in caliber and distribution. The appendix is not visualized; however, no secondary findings of acute appendicitis identified. Ascites: Small amount Lymphadenopathy: No mesenteric, retroperitoneal or periportal lymphadenopathy. Abdominal Wall and Mesentery: Anasarca. Vasculature: The visualized abdominal aorta is normal in size and caliber. Evaluation of abdominal and pelvic vessels is limited due to lack of intravenous contrast. Pelvic Organs: Unremarkable Musculoskeletal: No aggressive focal bony lesions, acute fractures or dislocation. Soft tissues: Unremarkable IMPRESSION: 1. Moderate pericardial effusion consider cardiac echo. 2. Pericholecystic fluid with no calcified gallstones. Question right heart failure. 3. Small bilateral pleural effusions. 4. Anasarca. 5. Small amount of ascites. Radiation optimization: All CT scans at this facility use at least one of these dose optimization techniques: automated exposure control mA and/or kV adjustment per patient size (includes targeted exams where dose is matched to clinical indication) or iterative reconstruction. ATED BY: VANNESSA CAMPOS Jr., DO DICTATED DATE/TIME: 08/27/242156 SIGNED BY: VANNESSA CAMPOS Jr., SIGNED DATE/TIME: 08/27/242156 CC: [place] [id number] Ph: [phone] DIAGNOSTIC IMAGING Diagnostic Imaging Report : [id number] Signed PATIENT: KARLA PERDUE ACCT: [id number] UNIT: [id number] : 1960 LOC: ER ROOM / BED: / AGE / SEX: 64 / F ADM STATUS: REG ER SERVICE 06 ORDERING PHYSICIAN: ALANNA MORALES MD PROCEDURE(s): TL - THORACO LUMBAR REASON: lbp, no trauma ORDER NUMBER(s): [id number], ACCESSION NUMBER(s): [id number] CLINICAL INDICATION: lbp, no trauma TECHNIQUE: 3 radiographic views of the thoracic spine were obtained. Comparison: None FINDINGS/IMPRESSION: There is no evidence of acute fracture or dislocation. Mild multilevel degenerative changes. The alignment is anatomical. There is no radiopaque foreign body. ATED BY: JULIAN VAZQUEZ DO DICTATED DATE/TIME: 08/27/242143 SIGNED BY: JULIAN VAZQUEZ DO SIGNED DATE/TIME: 08/27/242143 CC: Hemoglobin is 10.6. CMP and other labs are pending. Next Chest x-ray is normal The patient has right-sided heart failure moderate pericardial effusion bi lateral pleural effusion anasarca and ascites all on abdominal pelvis CT. She was given Protonix for proceed with only GERD. We will admit the patient to the hospitalist for further evaluation and care. Time of 1ST Reevaluation: 19:10 Reevaluation 1ST: Unchanged Patient Education/Counseling: Diagnosis, Treatment Family Education/Counseling: No Family Present Departure 1 Departure Time of Disposition: 02:20 Impression: Primary Impression: Lumbar sprain Qualified Codes: S33.5XXA - Sprain of ligaments of lumbar spine, initial encounter Additional Impressions: Lumbar disc disease Pericardial effusion Bilateral pleural effusion Anasarca Ascites Qualified Codes: K70.31 - Alcoholic cirrhosis of liver with ascites Disposition: ADMITTED INPATIENT Admit to: Tele Condition: Guarded Critical Care Note Critical Care Time?: Yes (45 min-critical care time only) Stability Stability form required: No Heart Score Heart Score: Heart Score Response (Comments) Value History N/A 0 EKG N/A 0 Age N/A 0 Risk Factors N/A 0 Troponin N/A 0 Total 0 I personally scribed for ALANNA MORALES MD ([email or web address]) on 08/27/24 at 19:08. Electronically submitted by Jeremy Peters ([email or web address]). I personally scribed for ALANNA MORALES MD ([email or web address]) on 08/28/24 at 00:16. Electronically submitted by Jeremy Peters [email or web address]). ALANNA MORALES MD Aug 27, 2024 19:08
[2024-08-27] MEDS: PANTOPRAZOLE 40 MG TAB PO ONE (20:37)
[2024-08-27] MEDS: KETOROLAC TROMETH 60MG/2ML VIAL IM ONE (20:37)
[2024-08-27 20:40] VITALS: PULSE 60; RESP 18; O2SAT 96
--- NOTE | 2024-08-27 21:46 | DVH ---
CLINICAL INDICATION: lbp, no trauma TECHNIQUE: 3 radiographic views of the thoracic spine were obtained. Comparison: None FINDINGS/IMPRESSION: There is no evidence of acute fracture or dislocation. Mild multilevel degenerative changes. The alignment is anatomical. There is no radiopaque foreign body.
--- NOTE | 2024-08-27 21:47 | DVH ---
CLINICAL INDICATION: LPB. NO TRAUMA TECHNIQUE: 2 radiographic views of the lumbar spine were obtained. Comparison: None FINDINGS/IMPRESSION: There is no evidence of acute fracture or dislocation. Mild degenerative changes. The alignment is anatomical. There is no radiopaque foreign body.
--- NOTE | 2024-08-27 21:50 | DVH ---
CLINICAL INDICATION: BACK PAIN TECHNIQUE: 3 radiographic views of the thoracic spine were obtained. Comparison: None FINDINGS/IMPRESSION: There is no evidence of acute fracture or dislocation. Mild degenerative changes. The alignment is anatomical. There is no radiopaque foreign body.
--- NOTE | 2024-08-27 21:59 | DVH ---
Exam: CT CT AB PEL WO CON-NO ORAL OR IV History: epigastric pain Comparison Study: None available at time of dictation. TECHNIQUE: Multidetector CT of the abdomen was performed from lung bases to pubic symphysis. Imaging was performed without IV contrast. Axial, coronal and sagittal multiplanar reformats were obtained fr om the axial data set by the technologist. Radiation Dose Information: CT Dose: CTDI volume is 8.67 mGy. Dose-length product is 499.21 mGy*cm FINDINGS: Evaluation of solid organs is limited due to lack of intravenous contrast use. Findings: Lung Bases: Small right pleural effusion. left pleural effusion.. . Moderate pericardial effusion. Liver: The liver is normal in size. No focal lesions. Gallbladder and Biliary Tree: Pericholecystic fluid. No calcified gallstones visualized. Findings may be secondary to right heart failure. Spleen: Unremarkable Pancreas: The pancreas is grossly normal in appearance. Adrenal Glands: Unremarkable Kidneys: Kidneys are grossly normal without calculi or hydronephrosis. Bladder: Grossly unremarkable for degree of distention. Bowel: The stomach is grossly normal in appearance. Small bowel and colon are normal in caliber and d istribution. The appendix is not visualized; however, no secondary findings of acute appendicitis id entified. Ascites: Small amount Lymphadenopathy: No mesenteric, retroperitoneal or periportal lymphadenopathy. Abdominal Wall and Mesentery: Anasarca. Vasculature: The visualized abdominal aorta is normal in size and caliber. Evaluation of abdominal a nd pelvic vessels is limited due to lack of intravenous contrast. Pelvic Organs: Unremarkable Musculoskeletal: No aggressive focal bony lesions, acute fractures or dislocation. Soft tissues: Unremarkable IMPRESSION: 1. Moderate pericardial effusion consider cardiac echo. 2. Pericholecystic fluid with no calcified gallstones. Question right heart failure. 3. Small bilateral pleural effusions. 4. Anasarca. 5. Small amount of ascites. Radiation optimization: All CT scans at this facility use at least one of these dose optimization dustin hniques: automated exposure control mA and/or kV adjustment per patient size (includes targeted exam s where dose is matched to clinical indication) or iterative reconstruction.
[2024-08-28] VITALS (7 sets, daily range): BP systolic 90–159; BP diastolic 58–65; PULSE 71–89; RESP 16–21; TEMP 97.6–97.8; O2SAT 92–95
[2024-08-28 01:52] LABS: Basophils # (auto) 0.1 10 ^3/uL (0-0.2); Basophils % (auto) 1.2 % (0.0-2.0); Eosinophils # (auto) 0.2 10 ^3/uL (0-0.8); Eosinophils % (auto) 2.4 % (0.0-7.0); Hemoglobin 10.6 g/dL (12.2-16.2); Lymphocytes # (auto) 0.8 10 ^3/uL (0.4-5.4); Lymphocytes % (auto) 11.5 % (10.0-50.0); Mean Corpuscular Hemoglobin 30.3 pg (28.0-32.0); Mean Corpuscular Hgb Conc. 35.3 g/dL (32.0-36.0); Mean Corpuscular Volume 85.7 fL (80.0-100.0); Monocytes # (auto) 0.4 10 ^3/uL (0-1.3); Neutrophils # (auto) 5.8 10 ^3/uL (1.6-8.6); Neutrophils % (auto) 79.9 % (37.0-80.0); Nucleated Red Blood Cells % 0.1 %; Platelet Count (auto) 198 10^3/uL (140-450); Red Blood Cells 3.51 10^6/uL (4.0-5.20); Red Cell Distribution Width 13.8 % (11.8-14.3); White Blood Cell 7.2 10^3/uL (4.4-10.8)
[2024-08-28 01:57] LABS: INR 1.08 (0.9-1.15); Partial Thromboplastin Time 31.4 SEC (24.5-34.5); Prothrombin Time 11.4 sec (9.3-11.8)
[2024-08-28 02:03] LABS: Alanine Aminotransferase 11 U/L (7-40); Albumin 3.8 g/dL (3.2-4.8); Alkaline Phosphatase 135 U/L (46-116); Anion Gap 7 (5-15); Aspartate Aminotransferase 15 U/L (13-40); BUN/Creatinine Ratio 11.4 (10.0-20.0); Bilirubin, Total 0.7 mg/dL (0.2-1.0); Blood Urea Nitrogen 36 mg/dL (9-23); Calcium 8.7 mg/dL (8.7-10.4); Carbon Dioxide 24 mmol/L (20-31); Chloride 105 mmol/L (98-107); Glucose 156 mg/dL (74-106); Lipase 29 U/L (12-53); Potassium 4.1 mmol/L (3.5-5.1); Sodium 136 mmol/L (136-145); Total Protein 6.6 g/dL (5.7-8.2)
[2024-08-28 02:37] LABS: Blood Alcohol < 3.0 mg/dL (<10)
--- NOTE | 2024-08-28 03:32 | DVH ---
Examination: CXRP Clinical Indication:epigastric pain Comparison: None. Technique: Frontal radiograph of the chest was obtained. Findings: Mild cardiomegaly with bilateral hilar congestion. Mild bilateral pleural effusions with adjacent lung atelectasis. No evidence of pneumothorax. No acute osseous abnormality is seen. Degenerative changes in the mid and lower thoracic spine, acro mioclavicular and glenohumeral joints. Impression: 1. Mild cardiomegaly with bilateral hilar congestion. 2. Mild bilateral pleural effusions with adjacent lung atelectasis. No evidence of pneumothorax. 3. Changes of congestive cardiac failure. Electronically Signed 08/28/2024 03:25 Rogelio Srivastava
[2024-08-28] MEDS ORDERED: NITROGLYCERIN 0.4 MG SL TAB SL PRN (05:45)
[2024-08-28] MEDS ORDERED: DEXTROSE (50%) 50ML SYRG IV PRN (05:45)
[2024-08-28] MEDS ORDERED: MORPHINE SULFATE INJ 2 MG/ml SYRG IV PRN (05:45)
[2024-08-28] MEDS ORDERED: ONDANSETRON HCL 4 MG/2 ML VIAL IV PRN (05:45)
[2024-08-28] MEDS: PANTOPRAZOLE 40 MG TAB PO SCH (06:34)
--- NOTE | 2024-08-28 06:37 | DVHHP2 ---
History of Present Illness Reason for Visit: Flank pain History of Present Illness 64-year-old female initially presented complaints of right-sided flank pain. Patient reports a one day history of right-sided flank pain that radiated to her mid upper back. She states the symptoms have currently subsided. She also reports worsening shortness for breath with exertion and occasional chest pressure. Denies fever or chills. No GI or symptoms. Past Medical History Hypertension, dyslipidemia, diabetes mellitus,? Heart failure Past Surgical History Denies Family History Noncontributory Smoke: No ALCOHOL: none Drugs: None Lives: with Family Review of Systems Review of Systems Review of systems are currently negative otherwise addressed in HPI. Allergies: Coded Allergies: No Known Drug Allergy (Verified Allergy, Unknown, 05/06/24) Medications Current Medications Medications Dose Ordered Sig/Linda Route Start Time Stop Time Status Last Admin Dose Admin Atorvastatin Calcium 20 mg HS PO 08/28/24 22:00 Tamsulosin HCl 0.4 mg QPM PO 08/28/24 18:00 Aspirin 81 mg DAILY PO 08/28/24 10:00 Nifedipine 90 mg DAILY PO 08/28/24 10:00 Carvedilol 6.25 mg Q12HR PO 08/28/24 10:00 Furosemide 20 mg BIDD IV 08/28/24 06:00 Pantoprazole Sodium 40 mg DAILY@0600 PO 08/28/24 06:00 Diagnostic Test (Pha) 1 strip ACHS 08/28/24 07:00 Insulin Human Regular ACHS SC 08/28/24 07:00 Dextrose 50 ml UD PRN IV 08/28/24 05:45 Ondansetron HCl 4 mg Q4HP PRN IV 08/28/24 05:45 Acetaminophen 650 mg Q6HP PRN PO 08/28/24 05:45 Nitroglycerin 0.4 mg Q5MINP PRN SL 08/28/24 05:45 Morphine Sulfate 2 mg Q30M PRN IV 08/28/24 05:45 Exam Vital Signs Vital Signs Date Time Temp Pulse Resp B/P (MAP) Pulse Ox O2 Delivery O2 Flow Rate FiO2 08/28/24 06:00 71 11 154/63 (93) 94 08/28/24 02:15 97.8 97.8 08/28/24 02:15 Nasal Cannula* 2 28 Exam Gen: 64-year-old female in mild distress Skin: Warm, dry, normal color and texture, no rash. HEENT: Normocephalic atraumatic, mucous membranes moist and pink. Neck: Cervical and supraclavicular nodes normal without enlargement, trachea is midline, thyroid gland is normal without masses. Pulmonary: Clear to auscultation and percussion bilaterally. Cardiac: Regular rate and rhythm. No murmur Abdomen: Soft, nontender, nondistended, bowel sounds present all 4 quadrants, no guarding, no rigidity, no organomegaly. Extremities: No cyanosis, clubbing, no edema Neuro: Cranial nerves II through XII grossly intact, normal affect and speech, no focal motor deficits. Labs/Xrays AGE / SEX: 64 / F ADM STATUS: ADM IN SERVICE 1604 ORDERING PHYSICIAN: LIDIA SYKES RESIDENT PROCEDURE(s): ECIDC - ECHO 2D MODE CARDIAC DOP REASON: Chest pain ORDER NUMBER(s): [id number], ACCESSION NUMBER(s): [id number] APPROVED REPORT EXAM: LIMITED Two-dimensional and M-mode echocardiogram with Doppler and color Doppler. Blood Pressure: 167/66 mmHg INDICATION Chest Pain Limited repeat to eval effusion RISK FACTORS Height: 5'1", Weight: 183 DIMENSIONS LVDd 4.8 (3.8-5.7cm) LA (2D) (1.9-4.0cm) Aortic Root (2.0-3.7cm) LVDs 2.2 (2.5-4.0cm) LA (MM) (1.9-4.0cm) Aortic Cusp Exc (1.5- 2.0cm) EF (%) 86.0 (55-70%) Rt. Atrium (1.9-4.0cm) Asc. Aorta cm Mitral Valve Mitral Mitral Stenosis E/A ratio 0.0 2D MVA cm2 Tricuspid Valve TR Velocity 4.11m/s RVSP 75mmHg Other Information Quality : Technically Limited Rhythm : Technically limited study due to body habitus, patient sitting up. Repeat to eval effusion. Conclusion Normal left ventricular size and dimension. Normal right ventricular systolic function estimated ejection fraction of 60%. There is a grade 1 diastolic dysfunction. There is moderate concentric left ventricular hypertrophy. Normal right ventricular size and dimension. Normal left ventricular systolic function. Severely elevated right ventricular systolic pressure at 75 mm of me rcury. There is moderate to large circumferential pericardial effusion. No signs of increased intrapericardial pressure is seen. Normal biatrial size and dimension. Normal aortic valve structure and function. Normal mitral valve structure and function. Normal tricuspid valve structure and function. The pulmonary valve is grossly normal. SIGNED BY: DENNIS SCHULTE MD SIGNED DATE/TIME: 08/13/24 0954 ORDERING PHYSICIAN: ALANNA MORALES MD PROCEDURE(s): ABPL - CT AB PEL WO CON-NO ORAL OR IV REASON: epigastric pain ORDER NUMBER(s): [id number], ACCESSION NUMBER(s): [id number] Exam: CT CT AB PEL WO CON-NO ORAL OR IV History: epigastric pain Comparison Study: None available at time of dictation. TECHNIQUE: Multidetector CT of the abdomen was performed from lung bases to pubic symphysis. Imaging was performed without IV contrast. Axial, coronal and sagittal multiplanar reformats were obtained from the axial data set by the technologist. Radiation Dose Information: CT Dose: CTDI volume is 8.67 mGy. Dose-length product is 499.21 mGy*cm FINDINGS: Evaluation of solid organs is limited due to lack of intravenous contrast use. Findings: Lung Bases: Small right pleural effusion. left pleural effusion.. . Moderate pericardial effusion. Liver: The liver is normal in size. No focal lesions. Gallbladder and Biliary Tree: Pericholecystic fluid. No calcified gallstones visualized. Findings may be secondary to right heart failure. Spleen: Unremarkable Pancreas: The pancreas is grossly normal in appearance. Adrenal Glands: Unremarkable Kidneys: Kidneys are grossly normal without calculi or hydronephrosis. Bladder: Grossly unremarkable for degree of distention. Bowel: The stomach is grossly normal in appearance. Small bowel and colon are normal in caliber and distribution. The appendix is not visualized; however, no secondary findings of acute appendicitis identified. Ascites: Small amount Lymphadenopathy: No mesenteric, retroperitoneal or periportal lymphadenopathy. Abdominal Wall and Mesentery: Anasarca. Vasculature: The visualized abdominal aorta is normal in size and caliber. Evaluation of abdominal and pelvic vessels is limited due to lack of intravenous contrast. Pelvic Organs: Unremarkable Musculoskeletal: No aggressive focal bony lesions, acute fractures or dislocation. Soft tissues: Unremarkable IMPRESSION: 1. Moderate pericardial effusion consider cardiac echo. 2. Pericholecystic fluid with no calcified gallstones. Question right heart failure. 3. Small bilateral pleural effusions. 4. Anasarca. 5. Small amount of ascites. Radiation optimization: All CT scans at this facility use at least one of these dose optimization techniques: automated exposure control mA and/or kV adjustment per patient size (includes targeted exams where dose is matched to clinical indication) or iterative reconstruction. RING PHYSICIAN: ALANNA MORALES MD PROCEDURE(s): CXRP - CHEST PORTABLE REASON: epigastric pain ORDER NUMBER(s): [id number], ACCESSION NUMBER(s): [id number] Examination: CXRP Clinical Indication:epigastric pain Comparison: None. Technique: Frontal radiograph of the chest was obtained. Findings: Mild cardiomegaly with bilateral hilar congestion. Mild bilateral pleural effusions with adjacent lung atelectasis. No evidence of pneumothorax. No acute osseous abnormality is seen. Degenerative changes in the mid and lower thoracic spine, acromioclavicular and glenohumeral joints. Impression: 1. Mild cardiomegaly with bilateral hilar congestion. 2. Mild bilateral pleural effusions with adjacent lung atelectasis. No evidence of pneumothorax. 3. Changes of congestive cardiac failure. Electronically Signed 08/28/2024 03:25 Rogelio Srivastava Labs Test 08/28/24 02:32 08/28/24 01:30 Range/Units Troponin I High Sensitivity 5 </=34 ng/L White Blood Count 7.2 4.4-10.8 10^3/uL Red Blood Count 3.51 L 4.0-5.20 10^6/uL Hemoglobin 10.6 L 12.2-16.2 g/dL Hematocrit 30.0 L 36.0-46.0 % Mean Corpuscular Volume 85.7 80.0-100.0 fL Mean Corpuscular Hemoglobin 30.3 28.0-32.0 pg Mean Corpuscular Hemoglobin Concent 35.3 32.0-36.0 g/dL Red Cell Distribution Width 13.8 11.8-14.3 % Platelet Count 198 140-450 10^3/uL Mean Platelet Volume 10.3 6.9-10.8 fL Neutrophils (%) (Auto) 79.9 37.0-80.0 % Lymphocytes (%) (Auto) 11.5 10.0-50.0 % Monocytes (%) (Auto) 5.0 0.0-12.0 % Eosinophils (%) (Auto) 2.4 0.0-7.0 % Basophils (%) (Auto) 1.2 0.0-2.0 % Neutrophils # (Auto) 5.8 1.6-8.6 10 ^3/uL Lymphocytes # (Auto) 0.8 0.4-5.4 10 ^3/uL Monocytes # (Auto) 0.4 0-1.3 10 ^3/uL Eosinophils # (Auto) 0.2 0-0.8 10 ^3/uL Basophils # (Auto) 0.1 0-0.2 10 ^3/uL Nucleated Red Blood Cells 0.1 % Prothrombin Time 11.4 9.3-11.8 sec Prothrombin Time INR 1.08 0.9-1.15 Activated Partial Thromboplast Time 31.4 24.5-34.5 SEC Sodium Level 136 136-145 mmol/L Potassium Level 4.1 3.5-5.1 mmol/L Chloride Level 105 98-107 mmol/L Carbon Dioxide Level 24 20-31 mmol/L Anion Gap 7 5-15 Blood Urea Nitrogen 36 H 9-23 mg/dL Creatinine 3.17 H 0.550-1.02 mg/dL Glomerular Filtration Rate Calc 16 >90 mL/min BUN/Creatinine Ratio 11.4 10.0-20.0 Serum Glucose 156 H 74-106 mg/dL Calcium Level 8.7 8.7-10.4 mg/dL Total Bilirubin 0.7 0.2-1.0 mg/dL Aspartate Amino Transferase (AST) 15 13-40 U/L Alanine Aminotransferase (ALT) 11 7-40 U/L Alkaline Phosphatase 135 H 46-116 U/L B-Type Natriuretic Peptide 127.59 0-100 pg/mL Total Protein 6.6 5.7-8.2 g/dL Albumin 3.8 3.2-4.8 g/dL Lipase 29 12-53 U/L Plasma/Serum Blood Alcohol < 3.0 <10 mg/dL Assessment/Plan Assessment/Plan Assessment Acute on chronic renal failure Right-sided heart failure Moderate pericardial effusion Pleural effusion Hypertension Plan Admit the patient to telemetry to the hospitalist Cardiology consult Nephrology consult Resume home medications Continue treatment per orders. Plan discussed with: Patient My Orders Orders - BLUE US AGACNKulwinder Procedure Category Date Status Time *Dr. [facility] CONS 08/28/24 Transmitted -[place] 05:40 Atorvastatin (Lipitor) PHA 08/28/24 In Process 22:00 Tamsulosin PHA 08/28/24 In Process Hydrochloride (Flomax) 18:00 Aspirin Tablet PHA 08/28/24 In Process 10:00 Nifedipine Er PHA 08/28/24 In Process (Procardia Xl 10:00 Carvedilol Tablet PHA 08/28/24 In Process (Coreg Tablet) 10:00 Furosemide Injection PHA 08/28/24 In Process (Lasix Injection) 06:00 Pantoprazole Tablet PHA 08/28/24 In Process (Protonix Tablet) 06:00 Glucose Blood PHA 08/28/24 In Process (Accu-Chek Comfort 07:00 Insulin R (Human) PHA 08/28/24 In Process (Insulin R) 07:00 Dextrose 50% Syringe PHA 08/28/24 In Process 05:45 Admit ADMIT 08/28/24 Transmitted 05:40 Ondansetron Hcl PHA 08/28/24 In Process (Zofran) 05:45 Complete Blood Count LAB 08/29/24 Verified 04:00 Comprehensive LAB 08/29/24 Verified Metabolic Panel 04:00 Cardiac DIET 08/28/24 Transmitted Diet-2gna,Lofat,Lochol Breakfast Condition: Stable YANI 08/28/24 In Process 05:40 Acetaminophen Tablet PHA 08/28/24 In Process (Tylenol Tablet) 05:45 Bedrest With Bathroom YANI 08/28/24 In Process Privileg 05:40 Nitroglycerin PHA 08/28/24 In Process Sublingual (Ntrostat 05:45 Morphine Sulfate PHA 08/28/24 In Process Injection 05:45 Stat Ekg For Chest YANI 08/28/24 In Process Pain 05:40 Notify Of Changes YANI 08/28/24 In Process From Base 05:40 Tube Depatcher For YANI 08/28/24 In Process 24 Hours 05:40 Emergency Dysrhythmia [facility] 08/28/24 In Process Protocol 05:40 Rhythm Strips Once [facility] 08/28/24 In Process Every Shift 05:40 Oxygen By Nasal RT 08/28/24 Transmitted Cannula 05:40 Date of Service: Aug 28, 2024 Billing Provider: BLUE US Common Visit Codes: [id number] INP/OBS CARE (HIGH) BLUE US Aug 28, 2024 06:37
[2024-08-28] MEDS: FUROSEMIDE 20 MG/2 ML VIAL IV SCH (06:41)
[2024-08-28] MEDS: ACCU-CHEK COMFORT CURVE STRIP VI SCH (06:56)
[2024-08-28] MEDS: InsuLIN REG 1unit/0.01ml Soln (100units/ml) SC SCH (06:57)
[2024-08-28] MEDS: NIFEdipine ER 30 MG TAB PO SCH (10:00)
[2024-08-28] MEDS: CARVEDILOL 3.125 MG TAB PO SCH (10:27)
[2024-08-28] MEDS: ASPirin 81 mg TAB PO SCH (10:27)
[2024-08-28] MEDS: BUMETANIDE 2.5mg/10ml (0.25 mg/ml) INJ IV SCH (11:45)
--- NOTE | 2024-08-28 11:51 | DVHINCON2 ---
Date of service: Aug 28, 2024 Referring Physician Bernabe Carlson, nurse practitioner Reason for Consultation Acute kidney injury History of Present Illness Patient is a 64-year-old female with past medical history significant for Hypertension, dyslipidemia, diabetes mellitus, Chronic Kidney Disease stage 4 secondary to diabetic nephropathy biopsy-proven and chronic diastolic heart failure who was recently discharged from the hospital is admitted for flank pain associated with nausea vomiting on admission patient has elevated BUN and creatinine nephrology is consulted for acute kidney injury Past Medical History Hypertension, dyslipidemia, diabetes mellitus, chronic diastolic heart failure Chronic diabetic kidney disease stage 4 Past Surgical History Kidney biopsy Allergies: Coded Allergies: No Known Drug Allergy (Verified Allergy, Unknown, 05/06/24) Home Meds Active Scripts Furosemide (Lasix) 40 Mg Tab, 40 MG PO BID for 30 Days, #60 TAB 1 Refill Prov:ARNEL SHERIDAN NP 08/20/24 Nifedipine (Nifedipine Er) 90 Mg Tab, 1 TAB PO DAILY for 30 Days, #30 TAB 5 Refills Prov:ARNEL SHERIDAN [employer] 08/20/24 Metformin Hydrochloride (Metformin Hcl) 500 Mg Tab, 1000 MG PO BID for 30 Days, #120 MG 2 Refills Prov:ARNEL SHERIDAN NP 08/20/24 Furosemide (Furosemide) 40 Mg Tab, 1 TAB PO DAILY for 30 Days, #30 TAB 5 Refills Prov:PATRICIA ADAMS 05/09/24 Valsartan (Valsartan) 80 Mg Tab, 320 MG PO DAILY for 30 Days, #120 TAB Prov:PATRICIA ADAMS 05/09/24 Tamsulosin Hcl (Flomax) 0.4 Mg Cap, 0.4 MG PO QPM for 30 Days, #30 CAP Prov:PATRICIA ADAMS 05/09/24 Ergocalciferol (VITAMIN D 10316 UNIT) 50,000 [place], [address] UNIT PO Q7D for 30 Days, #10 CAP Prov:PATRICIA ADAMS 05/09/24 Carvedilol (COREG) 3.125 Mg Tab, 6.25 MG PO Q12HR for 30 Days, #120 TAB Prov:PATRICIA ADAMS 05/09/24 Atorvastatin Calcium (ATORVASTATIN CALCIUM) 20 Mg Tab, 10 MG PO HS for 30 Days, #15 TAB Prov:PATRICIA ADAMS 05/09/24 Aspirin (Aspirin Low Dose) 81 Mg Tab, 81 MG PO DAILY for 30 Days, #30 TAB Prov:PATRICIA ADAMS RESIDENT 05/09/24 Reported Medications Benazepril HCl (Benazepril Hydrochloride) 40 Mg Tab, 40 MG PO DAILY, TAB 05/06/24 Current Medications Current Medications Medications (Trade) Dose Ordered Sig/Linda Route PRN Reason Start Time Stop Time Status Last Admin Atorvastatin Calcium (Lipitor) 20 mg HS PO 08/28/24 22:00 Tamsulosin HCl (Flomax) 0.4 mg QPM PO 08/28/24 18:00 Aspirin 81 mg DAILY PO 08/28/24 10:00 08/28/24 10:27 Nifedipine (Procardia Xl (Time-Release)) 90 mg DAILY PO 08/28/24 10:00 08/28/24 10:00 Carvedilol (Coreg Tablet) 6.25 mg Q12HR PO 08/28/24 10:00 08/28/24 10:27 Furosemide (Lasix Injection) 20 mg BIDD IV 08/28/24 06:00 08/28/24 11:46 DC 08/28/24 06:41 Pantoprazole Sodium (Protonix Tablet) 40 mg DAILY@0600 PO 08/28/24 06:00 08/28/24 06:34 Diagnostic Test (Pha) (Accu-Chek Comfort Curve T) 1 strip ACHS 08/28/24 07:00 08/28/24 11:30 Insulin Human Regular (InsuLIN R) ACHS SC 08/28/24 07:00 Dextrose 50 ml UD PRN IV Blood Sugar LESS THAN 60 08/28/24 05:45 Ondansetron HCl (Zofran) 4 mg Q4HP PRN IV NAUSEA / VOMITING 08/28/24 05:45 Acetaminophen (Tylenol Tablet) 650 mg Q6HP PRN PO PAIN SCALE 1-3 OR TEMP>100.4 08/28/24 05:45 Nitroglycerin (Ntrostat Sublingual) 0.4 mg Q5MINP PRN SL FOR CHEST PAIN 08/28/24 05:45 Morphine Sulfate 2 mg Q30M PRN IV FOR CHEST PAIN 08/28/24 05:45 Bumetanide (Bumex Injection) 2 mg BIDD IV 08/28/24 11:45 08/28/24 11:45 Family History: Diabetes mellitus G8 MOTHER, G8 FATHER, Prostate cancer G8 FATHER, Review of Systems All 12 item review of systems reviewed with the patient nonsignificant except what is mentioned in the history of present illness H&P Exam Vital Signs/I&O Vital Sign Date Time Temp Pulse Resp B/P (MAP) Pulse Ox O2 Delivery O2 Flow Rate FiO2 08/28/24 12:10 67 16 158/68 (98) 94 08/28/24 07:57 Room Air* 0 21 08/28/24 07:38 97.8 97.8 Physical Exam Patient is awake alert appeared in no acute distress Lungs clear to auscultation bilaterally Cardiac exam regular rate and rhythm GI soft nontender normal Extremity 2+ edema Neuro nonfocal Labs/Diagnostic Data Labs/Diagnostic Data Laboratory Tests Test 08/28/24 12:36 08/28/24 12:24 08/28/24 11:56 08/28/24 02:32 Range/Units Urine Color Yellow Yellow Urine Clarity Turbid H Clear Urine pH 5.5 5.0-9.0 Urine Specific [place] 1.011 1.001-1.035 Urine Protein 3+ H Negative Urine Ketones Negative Negative Urine Blood Negative Negative /uL Urine Nitrite Negative Negative Urine Bilirubin Negative Negative Urine Urobilinogen Normal Negative mg/dL Urine Leukocyte Esterase Negative Negative /uL Urine RBC <1 0 - 4 /hpf Urine WBC 1 0 - 5 /hpf Urine Squamous Epithelial Cells Few <5 /hpf Urine Bacteria None seen None Seen /hpf Urine Creatinine 80.20 30.0-125.0 mg/dL Urine Protein/Creatinine Ratio 4.46 Urine Sodium 45 40-220 mmol/L Urine Glucose Trace Normal mg/dL Urine Total Protein 357.6 H 1-14 mg/dL POC Glucose 96 70-106 mg/dl Iron Level 35 L 50-170 ug/dL Total Iron Binding Capacity 236 L 250-425 ug/dL Percent Iron Saturation 14.8 L 15-50 % Ferritin 83.2 10-291 ng/mL Vitamin D 25-Hydroxy 23.7 L 30.0-100 ng/mL Hepatitis B Surface Antigen Negative Negative Hepatitis C Antibody Negative Negative Troponin I High Sensitivity 5 </=34 ng/L Test 08/28/24 01:30 Range/Units White Blood Count 7.2 4.4-10.8 10^3/uL Red Blood Count 3.51 L 4.0-5.20 10^6/uL Hemoglobin 10.6 L 12.2-16.2 g/dL Hematocrit 30.0 L 36.0-46.0 % Mean Corpuscular Volume 85.7 80.0-100.0 fL Mean Corpuscular Hemoglobin 30.3 28.0-32.0 pg Mean Corpuscular Hemoglobin Concent 35.3 32.0-36.0 g/dL Red Cell Distribution Width 13.8 11.8-14.3 % Platelet Count 198 140-450 10^3/uL Mean Platelet Volume 10.3 6.9-10.8 fL Neutrophils (%) (Auto) 79.9 37.0-80.0 % Lymphocytes (%) (Auto) 11.5 10.0-50.0 % Monocytes (%) (Auto) 5.0 0.0-12.0 % Eosinophils (%) (Auto) 2.4 0.0-7.0 % Basophils (%) (Auto) 1.2 0.0-2.0 % Neutrophils # (Auto) 5.8 1.6-8.6 10 ^3/uL Lymphocytes # (Auto) 0.8 0.4-5.4 10 ^3/uL Monocytes # (Auto) 0.4 0-1.3 10 ^3/uL Eosinophils # (Auto) 0.2 0-0.8 10 ^3/uL Basophils # (Auto) 0.1 0-0.2 10 ^3/uL Nucleated Red Blood Cells 0.1 % Prothrombin Time 11.4 9.3-11.8 sec Prothrombin Time INR 1.08 0.9-1.15 Activated Partial Thromboplast Time 31.4 24.5-34.5 SEC Sodium Level 136 136-145 mmol/L Potassium Level 4.1 3.5-5.1 mmol/L Chloride Level 105 98-107 mmol/L Carbon Dioxide Level 24 20-31 mmol/L Anion Gap 7 5-15 Blood Urea Nitrogen 36 H 9-23 mg/dL Creatinine 3.17 H 0.550-1.02 mg/dL Glomerular Filtration Rate Calc 16 >90 mL/min BUN/Creatinine Ratio 11.4 10.0-20.0 Serum Glucose 156 H 74-106 mg/dL Calcium Level 8.7 8.7-10.4 mg/dL Total Bilirubin 0.7 0.2-1.0 mg/dL Aspartate Amino Transferase (AST) 15 13-40 U/L Alanine Aminotransferase (ALT) 11 7-40 U/L Alkaline Phosphatase 135 H 46-116 U/L Troponin I High Sensitivity 5 </=34 ng/L B-Type Natriuretic Peptide 127.59 0-100 pg/mL Total Protein 6.6 5.7-8.2 g/dL Albumin 3.8 3.2-4.8 g/dL Lipase 29 12-53 U/L Plasma/Serum Blood Alcohol < 3.0 <10 mg/dL Assessment Acute kidney injury superimposed Chronic Kidney Disease secondary hemodynamic mediated Severe diabetic nephropathy with nephrotic proteinuria, status post kidney biopsy Chronic diastolic heart failure Poorly controlled diabetes mellitus Hypertension Anemia of chronic Kidney disease recommendations Closely monitor fluid and electrolytes Avoid nephrotoxic medications Coffman catheter Strict I&Os Check urinalysis urine electrolytes And urine protein excretion Bumex 2 mg IV b.i.d. Fluid restrictions Renal diet Blood pressure control We will continue to follow Patient seen and examined by myself in the ER. I discussed my plan of care with the patient and primary nurse at the bedside I would like to thank Bernabe for the consult, will follow up Plan discussed with: Patient AMY ZAMBRANO MD Aug 28, 2024 11:51
[2024-08-28 13:00] LABS: Urine Bacteria None Seen /hpf (None Seen)
[2024-08-28 13:03] LABS: % Iron Saturation 14.8 % (15-50)
[2024-08-28 13:16] LABS: Hepatitis B Surface Antigen Negative (Negative)
[2024-08-28 13:25] LABS: Urine Blood Negative /uL (Negative); Urine Clarity Turbid (Clear); Urine Color Yellow (Yellow); Urine Protein, UAD 3+ (Negative); Urine Specific Gravity 1.011 (1.001-1.035); Urine Urobilinogen Normal (Negative); Urine WBC 1 /hpf (0 - 5); Urine pH 5.5 (5.0-9.0)
[2024-08-28 13:37] LABS: Hepatitis C Antibody Negative (Negative)
[2024-08-28 13:47] LABS: Creatinine, Urine 80.2 mg/dL (30.0-125.0)
[2024-08-28 13:48] LABS: Creatinine, Urine 79.28 mg/dL (30.0-125.0)
[2024-08-28 13:50] LABS: Protein, Urine 357.6 mg/dL (1-14); Urine Protein/Creatinine Ratio 4.46
[2024-08-28 14:09] LABS: Uric Acid 10.7 mg/dL (3.1-7.8)
[2024-08-28 14:11] LABS: Magnesium 1.9 mg/dL (1.6-2.6)
[2024-08-28 14:12] LABS: Phosphorus 5.4 mg/dL (2.4-5.1)
--- NOTE | 2024-08-28 15:48 | ECG ---
[facility] Test Date: 2024-08-27 Test Time: 18:30:36 Pat Name: KARLA PERDUE Department: ER Room: [facility]T A Gender: F Activity Leader: KAHLIL : 1960 Requested By: CHARISSE LAWLER Order Number: [id number] Reading MD: Gulshan Crowell Measurements Intervals [place] Rate: 61 P: 76 LA: 153 QRS: 32 QRSD: 79 T: 46 QT: 412 QTc: 415 Interpretive Statements Sinus rhythm Low voltage, precordial leads Borderline T wave abnormalities Electronically Signed On 08-29-2024 9:43:58 PDT by Gulshan Crowell Please click the below link to view image of tracing.
[2024-08-28] MEDS ORDERED: NITROGLYCERIN 0.2MG/HR TOPICAL PATCH TD PRN (16:30)
[2024-08-28] MEDS: TAMSULOSIN HYDROCHLORIDE 0.4 MG CAP PO SCH (17:12)
[2024-08-28] MEDS: ATORVASTATIN 20 MG TAB PO SCH (21:15)
[2024-08-29] VITALS (8 sets, daily range): BP systolic 113–168; BP diastolic 56–79; PULSE 69–80; RESP 16–18; TEMP 97.4–98.3; O2SAT 90–96
[2024-08-29 08:38] LABS: Albumin 3.2 g/dL (3.2-4.8); Alkaline Phosphatase 118 U/L (46-116); Anion Gap 9 (5-15); Aspartate Aminotransferase 14 U/L (13-40); BUN/Creatinine Ratio 12.7 (10.0-20.0); Bilirubin, Total 0.7 mg/dL (0.2-1.0); Blood Urea Nitrogen 34 mg/dL (9-23); Calcium 8.7 mg/dL (8.7-10.4); Carbon Dioxide 26 mmol/L (20-31); Chloride 106 mmol/L (98-107); Glucose 112 mg/dL (74-106); Potassium 3.8 mmol/L (3.5-5.1); Sodium 141 mmol/L (136-145); Total Protein 5.9 g/dL (5.7-8.2)
[2024-08-29 08:43] LABS: Basophils # (auto) 0 10 ^3/uL (0-0.2); Basophils % (auto) 0.9 % (0.0-2.0); Eosinophils # (auto) 0.3 10 ^3/uL (0-0.8); Eosinophils % (auto) 5.7 % (0.0-7.0); Hematocrit 28.6 % (36.0-46.0); Hemoglobin 9.9 g/dL (12.2-16.2); Lymphocytes # (auto) 0.8 10 ^3/uL (0.4-5.4); Lymphocytes % (auto) 16.4 % (10.0-50.0); Mean Corpuscular Hemoglobin 29.4 pg (28.0-32.0); Mean Corpuscular Hgb Conc. 34.5 g/dL (32.0-36.0); Mean Corpuscular Volume 85.3 fL (80.0-100.0); Monocytes # (auto) 0.4 10 ^3/uL (0-1.3); Monocytes % (auto) 8.1 % (0.0-12.0); Neutrophils # (auto) 3.4 10 ^3/uL (1.6-8.6); Neutrophils % (auto) 68.9 % (37.0-80.0); Nucleated Red Blood Cells % 0.2 %; Platelet Count (auto) 181 10^3/uL (140-450); Red Blood Cells 3.35 10^6/uL (4.0-5.20); Red Cell Distribution Width 14.1 % (11.8-14.3)
[2024-08-29 08:45] LABS: Alanine Aminotransferase 9 U/L (7-40)
--- NOTE | 2024-08-29 15:05 | DVHPN2 ---
Progress Note Date Seen: Aug 29, 2024 Medical Necessity Reason Pt with a Central, PICC or Fol: Yes The following are medically ne: Coffman Catheter Subjective Review of Systems Resting in bed in no acute distress. Patient reports: No new complaints, Feels better Objective vital signs Vital Sign Date Time Temp Pulse Resp B/P (MAP) Pulse Ox O2 Delivery O2 Flow Rate FiO2 08/29/24 14:47 98.2 75 16 149/56 (87) 94 98.2 08/29/24 07:30 Room Air* 0 21 Total Intake and Output 08/28/24 08/28/24 08/29/24 15:00 23:00 07:00 Intake Total 280 ml 800 ml Output Total 450 ml 1525 ml Balance -170 ml -725 ml medications Current Medications Medications Dose Ordered Sig/Linda Route Start Time Stop Time Status Last Admin Dose Admin Atorvastatin Calcium 20 mg HS PO 08/28/24 22:00 08/28/24 21:15 20 MG Tamsulosin HCl 0.4 mg QPM PO 08/28/24 18:00 08/28/24 17:12 0.4 MG Aspirin 81 mg DAILY PO 08/28/24 10:00 08/29/24 10:56 81 MG Nifedipine 90 mg DAILY PO 08/28/24 10:00 08/29/24 10:56 90 MG Carvedilol 6.25 mg Q12HR PO 08/28/24 10:00 08/29/24 10:55 6.25 MG Pantoprazole Sodium 40 mg DAILY@0600 PO 08/28/24 06:00 08/29/24 05:39 40 MG Diagnostic Test (Pha) 1 strip ACHS 08/28/24 07:00 08/29/24 11:30 1 STRIP Insulin Human Regular ACHS SC 08/28/24 07:00 08/29/24 12:04 2 UNITS Dextrose 50 ml UD PRN IV 08/28/24 05:45 Ondansetron HCl 4 mg Q4HP PRN IV 08/28/24 05:45 Acetaminophen 650 mg Q6HP PRN PO 08/28/24 05:45 Nitroglycerin 0.4 mg Q5MINP PRN SL 08/28/24 05:45 Morphine Sulfate 2 mg Q30M PRN IV 08/28/24 05:45 Bumetanide 2 mg BIDD IV 08/28/24 11:45 08/29/24 05:45 2 MG Nitroglycerin 1 patch DAILY PRN TD 08/28/24 16:30 Examination General: Appears stated age, in no acute distress Pulm: CTA bilaterally CVS: RRR, normal S1 and S2 Ext: + BLE edema Neuro: Alert and oriented x4 laboratory and microbiology Laboratory Tests 08/29/24 07:32 Test 08/29/24 07:32 Range/Units Serum Glucose 112 H 74-106 mg/dL Labs and/or images reviewed: Labs reviewed by me Problem List/Assessment/Plan Problem List/Assessment/Plan Acute kidney injury superimposed Chronic Kidney Disease secondary hemodynamic mediated-ongoing Severe diabetic nephropathy with nephrotic proteinuria, status post kidney biopsy Chronic diastolic heart failure Poorly controlled diabetes mellitus Hypertension-ongoing Anemia of chronic Kidney disease Recommendations Serial chemistry panels Closely monitor fluid and electrolytes Avoid nephrotoxic medications/IV contrast if able Strict I&Os Continue Bumex 2 mg IV b.i.d. Fluid restriction Renal diet Blood pressure control We will continue to follow Plan discussed with: Patient DION GONZALES Aug 29, 2024 15:05
--- NOTE | 2024-08-29 17:04 | DVHPN2 ---
Subjective 08/29 patient is still having pain but it is improved from 06/07 to 12/08. The pain is constant. She has a cough but the product sputum is unable to come out. She denies nausea, denies sick contacts. Denies travel. Changes from previous H/P or p: No Changes Objective Vitals Vital Signs Date Time Temp Pulse Resp B/P (MAP) Pulse Ox O2 Delivery O2 Flow Rate FiO2 08/29/24 14:47 98.2 75 16 149/56 (87) 94 98.2 08/29/24 07:30 Room Air* 0 21 Intake/Output Intake and Output 08/29/24 07:00 Intake Total 1080 ml Output Total 1975 ml Balance -895 ml Intake Oral 1080 ml Output Urine Total 1975 ml Stool Total 0 ml Exam GEN: Healthy appearing, well-developed, NAD. HEENT: NC/AT; MMM. CV: RRR, no m/r/g. LUNGS: CTAB, no w/r/c. ABD: Soft, NT/ND, NBS, no masses or organomegaly. EXT: skin Warm, well perfused. no rashes. No clubbing, cyanosis, or edema. Tender to palpation on ribs (posterior ribs right side lateral scapular line) NEURO: Ambulating with no limitations. No focal deficits. Medications Current Medications Medications Dose Ordered Sig/Linda Route Start Time Stop Time Status Last Admin Dose Admin Atorvastatin Calcium 20 mg HS PO 08/28/24 22:00 08/28/24 21:15 20 MG Tamsulosin HCl 0.4 mg QPM PO 08/28/24 18:00 08/28/24 17:12 0.4 MG Aspirin 81 mg DAILY PO 08/28/24 10:00 08/29/24 10:56 81 MG Nifedipine 90 mg DAILY PO 08/28/24 10:00 08/29/24 10:56 90 MG Carvedilol 6.25 mg Q12HR PO 08/28/24 10:00 08/29/24 10:55 6.25 MG Pantoprazole Sodium 40 mg DAILY@0600 PO 08/28/24 06:00 08/29/24 05:39 40 MG Diagnostic Test (Pha) 1 strip ACHS 08/28/24 07:00 08/29/24 11:30 1 STRIP Insulin Human Regular ACHS SC 08/28/24 07:00 08/29/24 12:04 2 UNITS Dextrose 50 ml UD PRN IV 08/28/24 05:45 Ondansetron HCl 4 mg Q4HP PRN IV 08/28/24 05:45 Acetaminophen 650 mg Q6HP PRN PO 08/28/24 05:45 Nitroglycerin 0.4 mg Q5MINP PRN SL 08/28/24 05:45 Morphine Sulfate 2 mg Q30M PRN IV 08/28/24 05:45 Bumetanide 2 mg BIDD IV 08/28/24 11:45 08/29/24 05:45 2 MG Nitroglycerin 1 patch DAILY PRN TD 08/28/24 16:30 Laboratory Results Laboratory Tests 08/29/24 07:32 Chemistry Test 08/29/24 07:32 Albumin 3.2 g/dL (3.2-4.8) Calcium Level 8.7 mg/dL (8.7-10.4) Total Protein 5.9 g/dL (5.7-8.2) LFT Test 08/29/24 07:32 Alanine Aminotransferase (ALT) 9 U/L (7-40) Alkaline Phosphatase 118 U/L (46-116) H Aspartate Amino Transferase (AST) 14 U/L (13-40) Total Bilirubin 0.7 mg/dL (0.2-1.0) Urinalysis Test 08/28/24 12:36 Urine Color Yellow (Yellow) Urine Clarity Turbid (Clear) H Urine pH 5.5 (5.0-9.0) Urine Specific [place] 1.011 (1.001-1.035) Urine Protein 3+ (Negative) H Urine Ketones Negative (Negative) Urine Blood Negative /uL (Negative) Urine Nitrite Negative (Negative) Urine Bilirubin Negative (Negative) Urine Urobilinogen Normal mg/dL (Negative) Urine Leukocyte Esterase Negative /uL (Negative) Urine RBC <1 /hpf (0 - 4) Urine WBC 1 /hpf (0 - 5) Urine Squamous Epithelial Cells Few /hpf (<5) Urine Bacteria None seen /hpf (None Seen) Urine Creatinine 80.20 mg/dL (30.0-125.0) Urine Protein/Creatinine Ratio 4.46 Urine Sodium 45 mmol/L (40-220) Urine Glucose Trace mg/dL (Normal) Urine Total Protein 357.6 mg/dL (1-14) H Labs and/or images reviewed: Labs reviewed by me, Image(s) reviewed by me Assessment/Plan Assessment/Plan ? cap Gram-negative/Gram-positive organism Musculoskeletal pain possible Protein urea/possible nephrotic syndrome MACO on CKD/worsening CKD -BNP negative, troponin negative, lipase negative - R flank pain radiating to mid upper back - CT neg - no renal stones, no signs of pyelo... - recent recovery from viral syndrome, chills, productive cough. possible pna - ua w 3+ protein with lge swelling starting few months ago. if pain continues RVT is on ddx and CTA will be needed - no trauma, heavy lifting but msk pain still possible - trial abx (ctx/zpac iv) - trial msk relaxants baclofen and celecoxib (in hope to not worsen ckd/maco) - maco on ckd- nephro following. Anemia (ACD)- iron panel suggests ACD Hypertension- Renal diet GI prophylaxis-tolerating diet DVT prophylaxis-Lovenox Med tele Plan discussed with: Patient Date of Service: Aug 29, 2024 Billing Provider: FREDO SEGURA MD Common Visit Codes: [id number] INP/OBS CARE(HIGH) FREDO SEGURA MD Aug 29, 2024 17:04
[2024-08-29] MEDS ORDERED: SITA100T7 PO (17:48)
[2024-08-29] MEDS ORDERED: HYDR50TA47 PO (17:48)
[2024-08-29] MEDS ORDERED: CARV6.2551 PO (17:48)
[2024-08-29] MEDS ORDERED: VALS320T PO (17:48)
[2024-08-29] MEDS ORDERED: ATOR20TA50 PO (17:48)
[2024-08-29] MEDS: AZITHROMYCIN 500MG/ 250ML 250 ML IV ONE (18:38)
[2024-08-29] MEDS: cefTRIAXone 1GM/50ML D5W 50 ML IV ONE (18:38)
[2024-08-29] MEDS: ACETAMINOPHEN 325 MG TAB PO PRN (18:39)
[2024-08-29] MEDS ORDERED: CELECOXIB 100 MG CAP PO SCH (22:00)
[2024-08-29] MEDS: BACLOFEN 10 MG TAB PO SCH (22:25)
[2024-08-30] VITALS (7 sets, daily range): BP systolic 133–143; BP diastolic 55–60; PULSE 59–72; RESP 18–20; TEMP 97.4–98; O2SAT 92–99
[2024-08-30 04:46] LABS: Basophils # (auto) 0.1 10 ^3/uL (0-0.2); Basophils % (auto) 1.2 % (0.0-2.0); Eosinophils # (auto) 0.2 10 ^3/uL (0-0.8); Eosinophils % (auto) 4.6 % (0.0-7.0); Hematocrit 26.8 % (36.0-46.0); Hemoglobin 9.4 g/dL (12.2-16.2); Lymphocytes # (auto) 1.2 10 ^3/uL (0.4-5.4); Lymphocytes % (auto) 25.6 % (10.0-50.0); Mean Corpuscular Hemoglobin 29.6 pg (28.0-32.0); Mean Corpuscular Hgb Conc. 35.1 g/dL (32.0-36.0); Mean Corpuscular Volume 84.6 fL (80.0-100.0); Monocytes # (auto) 0.4 10 ^3/uL (0-1.3); Monocytes % (auto) 9.1 % (0.0-12.0); Neutrophils # (auto) 2.8 10 ^3/uL (1.6-8.6); Neutrophils % (auto) 59.5 % (37.0-80.0); Nucleated Red Blood Cells % 0.1 %; Platelet Count (auto) 153 10^3/uL (140-450); Red Blood Cells 3.17 10^6/uL (4.0-5.20); Red Cell Distribution Width 13.8 % (11.8-14.3); White Blood Cell 4.6 10^3/uL (4.4-10.8)
[2024-08-30 05:03] LABS: Albumin 3.3 g/dL (3.2-4.8); Alkaline Phosphatase 107 U/L (46-116); Anion Gap 6 (5-15); Aspartate Aminotransferase 14 U/L (13-40); BUN/Creatinine Ratio 12.4 (10.0-20.0); Blood Urea Nitrogen 35 mg/dL (9-23); Calcium 8.6 mg/dL (8.7-10.4); Carbon Dioxide 27 mmol/L (20-31); Chloride 103 mmol/L (98-107); Glucose 91 mg/dL (74-106); Potassium 3.7 mmol/L (3.5-5.1); Sodium 136 mmol/L (136-145)
[2024-08-30 05:04] LABS: Alanine Aminotransferase < 9 U/L (7-40); Bilirubin, Total 0.5 mg/dL (0.2-1.0); Total Protein 5.6 g/dL (5.7-8.2)
[2024-08-30] MEDS ORDERED: ENOXAPARIN SOD 40 MG/0.4 ML SYRINGE SC SCH (10:00)
[2024-08-30] MEDS: cefTRIAXone 1GM/50ML D5W 50 ML IV SCH (10:20)
[2024-08-30] MEDS: HEPARIN SODIUM (PORCINE) 5000 UNITS/ML 1ML VIAL SC SCH (10:31)
--- NOTE | 2024-08-30 14:00 | DVHPN2 ---
Progress Note Date Seen: Aug 30, 2024 Medical Necessity Reason Pt with a Central, PICC or Fol: Yes The following are medically ne: Coffman Catheter Subjective Review of Systems Pt resting in bed. No new complaints. Patient reports: No new complaints Changes from previous H/P or p: No Changes Objective vital signs Vital Sign Date Time Temp Pulse Resp B/P (MAP) Pulse Ox O2 Delivery O2 Flow Rate FiO2 08/30/24 12:46 97.7 59 18 140/56 (84) 96 97.7 08/29/24 20:10 Room Air* 0 21 Total Intake and Output 08/29/24 08/29/24 08/30/24 15:00 23:00 07:00 Intake Total 650 ml 1040 ml Output Total 1200 ml 350 ml Balance -550 ml 690 ml medications Current Medications Medications Dose Ordered Sig/Linda Route Start Time Stop Time Status Last Admin Dose Admin Atorvastatin Calcium 20 mg HS PO 08/28/24 22:00 08/29/24 22:25 20 MG Tamsulosin HCl 0.4 mg QPM PO 08/28/24 18:00 08/29/24 18:40 0.4 MG Aspirin 81 mg DAILY PO 08/28/24 10:00 08/30/24 10:19 81 MG Nifedipine 90 mg DAILY PO 08/28/24 10:00 08/30/24 10:18 90 MG Carvedilol 6.25 mg Q12HR PO 08/28/24 10:00 08/30/24 10:20 6.25 MG Pantoprazole Sodium 40 mg DAILY@0600 PO 08/28/24 06:00 08/30/24 06:21 40 MG Diagnostic Test (Pha) 1 strip ACHS 08/28/24 07:00 08/30/24 11:30 1 STRIP Insulin Human Regular ACHS SC 08/28/24 07:00 08/30/24 11:30 2 UNITS Dextrose 50 ml UD PRN IV 08/28/24 05:45 Ondansetron HCl 4 mg Q4HP PRN IV 08/28/24 05:45 Acetaminophen 650 mg Q6HP PRN PO 08/28/24 05:45 08/29/24 18:39 650 MG Nitroglycerin 0.4 mg Q5MINP PRN SL 08/28/24 05:45 Morphine Sulfate 2 mg Q30M PRN IV 08/28/24 05:45 Bumetanide 2 mg BIDD IV 08/28/24 11:45 08/30/24 06:21 2 MG Nitroglycerin 1 patch DAILY PRN TD 08/28/24 16:30 Ceftriaxone Sodium 50 ml @ 100 mls/hr DAILY@09 IV 08/30/24 09:00 08/30/24 10:20 100 MLS/HR Azithromycin 250 ml @ 125 mls/hr DAILY IV 08/30/24 10:00 Baclofen 10 mg BID PO 08/29/24 22:00 08/30/24 10:19 10 MG Celecoxib 100 mg Q12HR PO 08/29/24 22:00 Hold Heparin Sodium (Porcine) 5,000 units BID SC 08/30/24 10:00 08/30/24 10:31 5,000 UNITS laboratory and microbiology Laboratory Tests 08/30/24 04:33 Test 08/30/24 04:33 Range/Units Serum Glucose 91 74-106 mg/dL Labs and/or images reviewed: Labs reviewed by me Problem List/Assessment/Plan Problem List/Assessment/Plan Acute kidney injury superimposed Chronic Kidney Disease secondary hemodynamic mediated-ongoing Severe diabetic nephropathy with nephrotic proteinuria, status post kidney biopsy Chronic diastolic heart failure Poorly controlled diabetes mellitus Hypertension-ongoing Anemia of chronic Kidney disease Recommendations Serial chemistry panels Closely monitor fluid and electrolytes Avoid nephrotoxic medications/IV contrast if able Strict I&Os Continue Bumex 2 mg IV b.i.d. Fluid restriction Renal diet Blood pressure control Will follow up with renal biopsy if resulted tomorrow We will continue to follow Case discussed with Dr. Ronquillo Plan discussed with: Patient, Daughter, Son, Other (Discussed case with Dr. Ronquillo) DION GONZALES Aug 30, 2024 13:59
[2024-08-30 16:36] LABS: Chloride 104 mmol/L (98-107); Potassium 3.5 mmol/L (3.5-5.1); Sodium 137 mmol/L (136-145)
[2024-08-30 16:37] LABS: Anion Gap 6 (5-15); Carbon Dioxide 27 mmol/L (20-31)
[2024-08-30 16:38] LABS: Calcium 8.1 mg/dL (8.7-10.4)
[2024-08-30 16:42] LABS: BUN/Creatinine Ratio 13.1 (10.0-20.0); Blood Urea Nitrogen 37 mg/dL (9-23); Glucose 138 mg/dL (74-106)
[2024-08-30] MEDS: AZITHROMYCIN 500MG/ 250ML 250 ML IV SCH (18:16)
--- NOTE | 2024-08-30 21:55 | DVHPN2 ---
Subjective 08/29 patient is still having pain but it is improved from /10 to 12/08. The pain is constant. She has a cough but the product sputum is unable to come out. She denies nausea, denies sick contacts. Denies travel. - 08/30 patient is hypersomnolent today during visit, when she wakes up she only wears it for a few seconds before falling back asleep. Blood glucose POC was normal, ABG ordered and patient wakes up during needlestick from the pain. Her right flank pain appears to be resolving, lower concern for RVT now. This is likely musculoskeletal pain. We will have to follow 1 more day to ensure patient is recovering ordering PT, plan to remove Coffman tomorrow. Reviewed: H&P Changes from previous H/P or p: No Changes General: Per HPI Objective Vitals Vital Signs Date Time Temp Pulse Resp B/P (MAP) Pulse Ox O2 Delivery O2 Flow Rate FiO2 08/30/24 21:16 65 137/57 08/30/24 21:00 97.9 18 99 97.9 08/30/24 08:00 Room Air* 0 21 Intake/Output Intake and Output 08/30/24 07:00 Intake Total 1690 ml Output Total 1550 ml Balance 140 ml Intake Oral 1690 ml Output Urine Total 1550 ml Exam GEN: Healthy appearing, well-developed, NAD. HEENT: NC/AT; MMM. CV: RRR, no m/r/g. LUNGS: CTAB, no w/r/c. ABD: Soft, NT/ND, NBS, no masses or organomegaly. EXT: skin Warm, well perfused. no rashes. No clubbing, cyanosis, or edema. Tender to palpation on ribs (posterior ribs right side lateral scapular line) NEURO: Ambulating with no limitations. No focal deficits. Medications Current Medications Medications Dose Ordered Sig/Linda Route Start Time Stop Time Status Last Admin Dose Admin Atorvastatin Calcium 20 mg HS PO 08/28/24 22:00 08/30/24 21:16 20 MG Tamsulosin HCl 0.4 mg QPM PO 08/28/24 18:00 08/30/24 18:17 0.4 MG Aspirin 81 mg DAILY PO 08/28/24 10:00 08/30/24 10:19 81 MG Nifedipine 90 mg DAILY PO 08/28/24 10:00 08/30/24 10:18 90 MG Carvedilol 6.25 mg Q12HR PO 08/28/24 10:00 08/30/24 21:16 6.25 MG Pantoprazole Sodium 40 mg DAILY@0600 PO 08/28/24 06:00 08/30/24 06:21 40 MG Diagnostic Test (Pha) 1 strip ACHS 08/28/24 07:00 08/30/24 21:17 1 STRIP Insulin Human Regular ACHS SC 08/28/24 07:00 08/30/24 21:26 4 UNITS Dextrose 50 ml UD PRN IV 08/28/24 05:45 Ondansetron HCl 4 mg Q4HP PRN IV 08/28/24 05:45 Acetaminophen 650 mg Q6HP PRN PO 08/28/24 05:45 08/29/24 18:39 650 MG Nitroglycerin 0.4 mg Q5MINP PRN SL 08/28/24 05:45 Morphine Sulfate 2 mg Q30M PRN IV 08/28/24 05:45 Bumetanide 2 mg BIDD IV 08/28/24 11:45 08/30/24 18:17 2 MG Nitroglycerin 1 patch DAILY PRN TD 08/28/24 16:30 Ceftriaxone Sodium 50 ml @ 100 mls/hr DAILY@09 IV 08/30/24 09:00 08/30/24 17:24 100 MLS/HR Azithromycin 250 ml @ 125 mls/hr DAILY IV 08/30/24 10:00 08/30/24 18:16 125 MLS/HR Baclofen 10 mg BID PO 08/29/24 22:00 08/30/24 10:19 10 MG Celecoxib 100 mg Q12HR PO 08/29/24 22:00 Hold Heparin Sodium (Porcine) 5,000 units BID SC 08/30/24 10:00 08/30/24 21:22 5,000 UNITS Trazodone HCl 50 mg HS PO 08/30/24 22:00 Laboratory Results Laboratory Tests 08/30/24 04:33 08/30/24 16:15 Chemistry Test 08/30/24 04:33 08/30/24 16:15 Albumin 3.3 g/dL (3.2-4.8) Calcium Level 8.6 mg/dL (8.7-10.4) L 8.1 mg/dL (8.7-10.4) L Total Protein 5.6 g/dL (5.7-8.2) L LFT Test 08/30/24 04:33 Alanine Aminotransferase (ALT) < 9 U/L (7-40) Alkaline Phosphatase 107 U/L (46-116) Aspartate Amino Transferase (AST) 14 U/L (13-40) Total Bilirubin 0.5 mg/dL (0.2-1.0) Urinalysis Test 08/28/24 12:36 Urine Color Yellow (Yellow) Urine Clarity Turbid (Clear) H Urine pH 5.5 (5.0-9.0) Urine Specific [place] 1.011 (1.001-1.035) Urine Protein 3+ (Negative) H Urine Ketones Negative (Negative) Urine Blood Negative /uL (Negative) Urine Nitrite Negative (Negative) Urine Bilirubin Negative (Negative) Urine Urobilinogen Normal mg/dL (Negative) Urine Leukocyte Esterase Negative /uL (Negative) Urine RBC <1 /hpf (0 - 4) Urine WBC 1 /hpf (0 - 5) Urine Squamous Epithelial Cells Few /hpf (<5) Urine Bacteria None seen /hpf (None Seen) Urine Creatinine 80.20 mg/dL (30.0-125.0) Urine Protein/Creatinine Ratio 4.46 Urine Sodium 45 mmol/L (40-220) Urine Glucose Trace mg/dL (Normal) Urine Total Protein 357.6 mg/dL (1-14) H Labs and/or images reviewed: Labs reviewed by me, Image(s) reviewed by me Assessment/Plan Assessment/Plan - 08/30 patient is hypersomnolent today during visit, when she wakes up she only wears it for a few seconds before falling back asleep. Blood glucose POC was normal, ABG ordered and patient wakes up during needlestick from the pain. Her right flank pain appears to be resolving, lower concern for RVT now. This is likely musculoskeletal pain. We will have to follow 1 more day to ensure patient is recovering ordering PT, plan to remove Coffman tomorrow. ? cap Gram-negative/Gram-positive organism Musculoskeletal pain possible Protein urea/possible nephrotic syndrome MACO on CKD/worsening CKD -BNP negative, troponin negative, lipase negative - R flank pain radiating to mid upper back - CT neg - no renal stones, no signs of pyelo... - recent recovery from viral syndrome, chills, productive cough. possible pna - ua w 3+ protein with lge swelling starting few months ago. if pain continues RVT is on ddx and CTA will be needed - no trauma, heavy lifting but msk pain still possible - trial abx (ctx/zpac iv) - trial msk relaxants baclofen and celecoxib (in hope to not worsen ckd/maco) - maco on ckd- nephro following. Hypersomnolence ,-she does snore at home and is not on CPAP, this could be SALIMA - stat BMP shows normal bicarb, lower concern for hypercarbia. This is likely poor sleep at night, we will give patient trazodone at night and low risk for 1 more night Anemia (ACD)- iron panel suggests ACD Hypertension- Renal diet GI prophylaxis-tolerating diet DVT prophylaxis-Lovenox Med tele Plan discussed with: Patient My Orders Orders - FREDO SEGURA MD Procedure Category Date Status Time Heparin Sodium PHA 08/30/24 In Process (Porcine) 10:00 Pt Request For Service PT 08/30/24 Logged 15:58 Trazodone Hcl PHA 08/30/24 In Process (Desyrel) 22:00 Date of Service: Aug 30, 2024 Billing Provider: FREDO SEGURA MD Common Visit Codes: [id number] INP/OBS CARE(HIGH) FREDO SEGURA MD Aug 30, 2024 21:55
[2024-08-30] MEDS: traZODone HCL 50 MG TAB PO SCH (22:00)
[2024-08-31] VITALS (8 sets, daily range): BP systolic 126–146; BP diastolic 53–76; PULSE 60–68; RESP 18–20; TEMP 97.6–98; O2SAT 95–98
[2024-08-31 10:02] LABS: Basophils # (auto) 0 10 ^3/uL (0-0.2); Basophils % (auto) 0.7 % (0.0-2.0); Eosinophils # (auto) 0.2 10 ^3/uL (0-0.8); Eosinophils % (auto) 3.5 % (0.0-7.0); Hematocrit 25.3 % (36.0-46.0); Hemoglobin 8.6 g/dL (12.2-16.2); Lymphocytes # (auto) 1.3 10 ^3/uL (0.4-5.4); Lymphocytes % (auto) 22.3 % (10.0-50.0); Mean Corpuscular Hgb Conc. 34.2 g/dL (32.0-36.0); Mean Corpuscular Volume 84.8 fL (80.0-100.0); Monocytes # (auto) 0.3 10 ^3/uL (0-1.3); Monocytes % (auto) 5.2 % (0.0-12.0); Neutrophils # (auto) 4.1 10 ^3/uL (1.6-8.6); Neutrophils % (auto) 68.3 % (37.0-80.0); Platelet Count (auto) 177 10^3/uL (140-450); Red Blood Cells 2.98 10^6/uL (4.0-5.20); Red Cell Distribution Width 13.5 % (11.8-14.3)
[2024-08-31] MEDS: LACTATED RINGER'S 1,000 ML IV ONE (10:15)
[2024-08-31 10:23] LABS: Alanine Aminotransferase 11 U/L (7-40); Albumin 2.9 g/dL (3.2-4.8); Alkaline Phosphatase 93 U/L (46-116); Anion Gap 9 (5-15); Aspartate Aminotransferase 12 U/L (13-40); Bilirubin, Total 0.4 mg/dL (0.2-1.0); Blood Urea Nitrogen 38 mg/dL (9-23); Calcium 8.2 mg/dL (8.7-10.4); Carbon Dioxide 24 mmol/L (20-31); Chloride 102 mmol/L (98-107); Glucose 147 mg/dL (74-106); Potassium 3.5 mmol/L (3.5-5.1); Sodium 135 mmol/L (136-145); Total Protein 5.4 g/dL (5.7-8.2)
--- NOTE | 2024-08-31 12:08 | DVH ---
EXAMINATION: XY R RIB XRAY INDICATION: r/o rib fracture (right lateral/posterior lower ribs pain) COMPARISON: None TECHNIQUE: 2 views of the right ribs history FINDINGS: Right basilar subsegmental atelectasis. No displaced right rib fracture. IMPRESSION: No displaced right rib fracture.
--- NOTE | 2024-08-31 15:39 | DVHPN2 ---
Progress Note Date Seen: Aug 31, 2024 Medical Necessity Reason Pt with a Central, PICC or Fol: Yes The following are medically ne: Coffman Catheter Subjective Review of Systems Pt resting in bed. Reports flank pain has diminished. Patient reports: No new complaints, Feels better Objective vital signs Vital Sign Date Time Temp Pulse Resp B/P (MAP) Pulse Ox O2 Delivery O2 Flow Rate FiO2 08/31/24 13:26 97.6 61 18 144/58 (86) 98 97.6 08/30/24 20:00 Room Air* 0 21 Total Intake and Output 08/30/24 08/30/24 08/31/24 15:00 23:00 07:00 Intake Total 750 ml 50 ml Output Total 800 ml 800 ml Balance -50 ml -750 ml medications Current Medications Medications Dose Ordered Sig/Linda Route Start Time Stop Time Status Last Admin Dose Admin Atorvastatin Calcium 20 mg HS PO 08/28/24 22:00 08/30/24 21:16 20 MG Tamsulosin HCl 0.4 mg QPM PO 08/28/24 18:00 08/30/24 18:17 0.4 MG Aspirin 81 mg DAILY PO 08/28/24 10:00 08/31/24 08:17 81 MG Nifedipine 90 mg DAILY PO 08/28/24 10:00 08/31/24 08:16 90 MG Carvedilol 6.25 mg Q12HR PO 08/28/24 10:00 08/31/24 08:16 6.25 MG Pantoprazole Sodium 40 mg DAILY@0600 PO 08/28/24 06:00 08/31/24 05:48 40 MG Diagnostic Test (Pha) 1 strip ACHS 08/28/24 07:00 08/31/24 11:30 1 STRIP Insulin Human Regular ACHS SC 08/28/24 07:00 08/31/24 11:30 3 UNITS Dextrose 50 ml UD PRN IV 08/28/24 05:45 Ondansetron HCl 4 mg Q4HP PRN IV 08/28/24 05:45 Acetaminophen 650 mg Q6HP PRN PO 08/28/24 05:45 08/29/24 18:39 650 MG Nitroglycerin 0.4 mg Q5MINP PRN SL 08/28/24 05:45 Morphine Sulfate 2 mg Q30M PRN IV 08/28/24 05:45 Bumetanide 2 mg BIDD IV 08/28/24 11:45 08/31/24 05:49 2 MG Nitroglycerin 1 patch DAILY PRN TD 08/28/24 16:30 Ceftriaxone Sodium 50 ml @ 100 mls/hr DAILY@09 IV 08/30/24 09:00 08/31/24 08:17 100 MLS/HR Azithromycin 250 ml @ 125 mls/hr DAILY IV 08/30/24 10:00 08/31/24 09:14 125 MLS/HR Celecoxib 100 mg Q12HR PO 08/29/24 22:00 Hold Heparin Sodium (Porcine) 5,000 units BID SC 08/30/24 10:00 08/31/24 08:42 5,000 UNITS Trazodone HCl 50 mg HS PO 08/30/24 22:00 Baclofen 5 mg QPM PO 08/31/24 18:00 Examination General: Appears stated age, in no acute distress Pulm: CTA bilaterally CVS: RRR, normal S1 and S2 Ext: + BLE edema Neuro: Alert and oriented x4 laboratory and microbiology Laboratory Tests 08/31/24 09:29 Test 08/31/24 09:29 Range/Units Serum Glucose 147 H 74-106 mg/dL Labs and/or images reviewed: Labs reviewed by me Problem List/Assessment/Plan Problem List/Assessment/Plan Acute kidney injury superimposed Chronic Kidney Disease secondary hemodynamic mediated-ongoing. Slight downtrend in creat 2.72. GFR 19 Severe diabetic nephropathy with nephrotic proteinuria, status post kidney biopsy Chronic diastolic heart failure Poorly controlled diabetes mellitus Hypertension-ongoing Anemia of chronic Kidney disease Recommendations Will order Doppler US of renal veins to evaluate for possible renal vein thrombosis Serial chemistry panels Closely monitor fluid and electrolytes Avoid nephrotoxic medications/IV contrast if able Strict I&Os Continue Bumex 2 mg IV b.i.d. Fluid restriction Renal diet Blood pressure control Will follow up with renal biopsy once resulted We will continue to follow Case discussed with Dr. Ronquillo Plan discussed with: Patient, Other (Dr. Wilbur Ronquillo) DION GONZALES Aug 31, 2024 15:39
--- NOTE | 2024-08-31 16:04 | DVH ---
EXAM: US KIDNEY HISTORY: ckd. Evaluate for renal vein thrombosis. COMPARISON: US KIDNEY on DOS: 08/12/24, US KIDNEY on DOS: 05/07/24 TECHNIQUE: Real-time ultrasound performed utilizing grayscale and color techniques. FINDINGS: RIGHT KIDNEY: 11.5 cm in length. No hydronephrosis or nephrolithiasis. No suspicious lesions ident ified. Preservation of normal renal cortical thickness and echotexture. LEFT KIDNEY: 11.6 cm in length. No suspicious lesions identified. Mild hydronephrosis. No nephrolith iasis. Preservation of renal cortical thickness and echotexture. BLADDER: No mural thickening or focal lesion. No significant post void residual. OTHER: Bilateral renal veins demonstrate color flow on Doppler images with peak systolic velocities o f up to 20 cm per 2nd on the right side and 19.2 centimeter/second on the left side normal phasic khris w is maintained. Color flow is seen in the IVC at the level of the kidneys. IMPRESSION: 1. No renal vein thrombosis noted bilaterally. The IVC appears patent. 2. Preservation of normal renal cortical thickness and echotexture bilaterally.
[2024-08-31] MEDS: BACLOFEN 10 MG TAB PO SCH (18:00)
--- NOTE | 2024-08-31 22:34 | DVHPN2 ---
Subjective History of Present Illness 64-year-old female initially presented complaints of right-sided flank pain. Patient reports a one day history of right-sided flank pain that radiated to her mid upper back. She states the symptoms have currently subsided. She also reports worsening shortness for breath with exertion and occasional chest pressure. Denies fever or chills. No GI or symptoms. updates - 08/29 - patient is still having pain but it is improved from 8/10 to 12/08. The pain is constant. She has a cough but the product sputum is unable to come out. She denies nausea, denies sick contacts. Denies travel. - 08/30 - patient is hypersomnolent today during visit, when she wakes up she only wears it for a few seconds before falling back asleep. Blood glucose POC was normal, ABG ordered and patient wakes up during needlestick from the pain. Her right flank pain appears to be resolving, lower concern for RVT now. This is likely musculoskeletal pain. We will have to follow 1 more day to ensure patient is recovering ordering PT, plan to remove Coffman tomorrow. - 08/31- patient continues to have right upper quadrant/right lateral lower ribs pain. We have already tried muscle relaxants and supposed to try celecoxib. Pain has not worsened but also is persisting. Concern for renal vein thrombosis remains but unable to do CTA as GFR is 18 only. Nephrology consulted and recommends renal vein ultrasound. Nephrology will also try to find out the biopsy results that the family is requesting. Right lower ribs x-ray was also ordered. Reviewed: H&P Changes from previous H/P or p: No Changes General: Per HPI Objective Vitals Vital Signs Date Time Temp Pulse Resp B/P (MAP) Pulse Ox O2 Delivery O2 Flow Rate FiO2 08/31/24 21:14 69 146/63 08/31/24 17:17 98.0 18 98 98.0 08/31/24 08:00 Nasal Cannula* 2 28 Intake/Output Intake and Output 08/31/24 07:00 Intake Total 800 ml Output Total 1600 ml Balance -800 ml Intake Oral 500 ml IV Total 300 ml Output Urine Total 1600 ml Exam GEN: Healthy appearing, well-developed, NAD. HEENT: NC/AT; MMM. CV: RRR, no m/r/g. LUNGS: CTAB, no w/r/c. ABD: Soft, NT/ND, NBS, no masses or organomegaly. EXT: skin Warm, well perfused. no rashes. No clubbing, cyanosis, or edema. Tender to palpation on ribs (posterior ribs right side lateral scapular line) NEURO: Ambulating with no limitations. No focal deficits. Medications Current Medications Medications Dose Ordered Sig/Linda Route Start Time Stop Time Status Last Admin Dose Admin Atorvastatin Calcium 20 mg HS PO 08/28/24 22:00 08/31/24 21:13 20 MG Tamsulosin HCl 0.4 mg QPM PO 08/28/24 18:00 08/31/24 18:06 0.4 MG Aspirin 81 mg DAILY PO 08/28/24 10:00 08/31/24 08:17 81 MG Nifedipine 90 mg DAILY PO 08/28/24 10:00 08/31/24 08:16 90 MG Carvedilol 6.25 mg Q12HR PO 08/28/24 10:00 08/31/24 21:14 6.25 MG Pantoprazole Sodium 40 mg DAILY@0600 PO 08/28/24 06:00 08/31/24 05:48 40 MG Diagnostic Test (Pha) 1 strip ACHS 08/28/24 07:00 08/31/24 21:13 1 STRIP Insulin Human Regular ACHS SC 08/28/24 07:00 08/31/24 21:12 3 UNITS Dextrose 50 ml UD PRN IV 08/28/24 05:45 Ondansetron HCl 4 mg Q4HP PRN IV 08/28/24 05:45 Acetaminophen 650 mg Q6HP PRN PO 08/28/24 05:45 08/29/24 18:39 650 MG Nitroglycerin 0.4 mg Q5MINP PRN SL 08/28/24 05:45 Morphine Sulfate 2 mg Q30M PRN IV 08/28/24 05:45 Bumetanide 2 mg BIDD IV 08/28/24 11:45 08/31/24 18:06 2 MG Nitroglycerin 1 patch DAILY PRN TD 08/28/24 16:30 Ceftriaxone Sodium 50 ml @ 100 mls/hr DAILY@09 IV 08/30/24 09:00 08/31/24 08:17 100 MLS/HR Azithromycin 250 ml @ 125 mls/hr DAILY IV 08/30/24 10:00 08/31/24 09:14 125 MLS/HR Celecoxib 100 mg Q12HR PO 08/29/24 22:00 Hold Heparin Sodium (Porcine) 5,000 units BID SC 08/30/24 10:00 08/31/24 21:11 5,000 UNITS Trazodone HCl 50 mg HS PO 08/30/24 22:00 Baclofen 5 mg QPM PO 08/31/24 18:00 Laboratory Results Laboratory Tests 08/31/24 09:29 Chemistry Test 08/31/24 09:29 Albumin 2.9 g/dL (3.2-4.8) L Calcium Level 8.2 mg/dL (8.7-10.4) L Total Protein 5.4 g/dL (5.7-8.2) L LFT Test 08/31/24 09:29 Alanine Aminotransferase (ALT) 11 U/L (7-40) Alkaline Phosphatase 93 U/L (46-116) Aspartate Amino Transferase (AST) 12 U/L (13-40) L Total Bilirubin 0.4 mg/dL (0.2-1.0) Urinalysis Test 08/28/24 12:36 Urine Color Yellow (Yellow) Urine Clarity Turbid (Clear) H Urine pH 5.5 (5.0-9.0) Urine Specific [place] 1.011 (1.001-1.035) Urine Protein 3+ (Negative) H Urine Ketones Negative (Negative) Urine Blood Negative /uL (Negative) Urine Nitrite Negative (Negative) Urine Bilirubin Negative (Negative) Urine Urobilinogen Normal mg/dL (Negative) Urine Leukocyte Esterase Negative /uL (Negative) Urine RBC <1 /hpf (0 - 4) Urine WBC 1 /hpf (0 - 5) Urine Squamous Epithelial Cells Few /hpf (<5) Urine Bacteria None seen /hpf (None Seen) Urine Creatinine 80.20 mg/dL (30.0-125.0) Urine Protein/Creatinine Ratio 4.46 Urine Sodium 45 mmol/L (40-220) Urine Glucose Trace mg/dL (Normal) Urine Total Protein 357.6 mg/dL (1-14) H Labs and/or images reviewed: Labs reviewed by me, Image(s) reviewed by me Assessment/Plan Assessment/Plan - 08/31-patient continues to have right upper quadrant/right lateral lower ribs pain. We have already tried muscle relaxants and supposed to try celecoxib. Pain has not worsened but also is persisting. Concern for renal vein thrombosis remains but unable to do CTA as GFR is 18 only. Nephrology consulted and recommends renal vein ultrasound. Nephrology will also try to find out the biopsy results that the family is requesting. Right lower ribs x-ray was also ordered. Tentative plan.: MSK pain still remains top differential, we will rule out RVT with Nephrology help. If RVT is not an issue patient should be stable to discharge but will require physical therapy and removal of Coffman Musculoskeletal pain possible Proteinurea/possible nephrotic syndrome MACO on CKD/worsening CKD -right flank pain, BNP negative, troponin negative, lipase negative - R flank pain radiating to mid upper back - CT neg - no renal stones, no signs of pyelo... - ua w 3+ protein with lge swelling starting few months ago. if pain continues RVT is on ddx and CTA will be needed - no trauma, heavy lifting but msk pain still possible - trial msk relaxants baclofen and celecoxib (in hope to not worsen ckd/maco) - maco on ckd- nephro following. ? cap Gram-negative/Gram-positive organism , unlikely - recent recovery from viral syndrome, chills, productive cough. possible pna - we will stop abx (ctx/zpac iv) Hypersomnolence ,-she does snore at home and is not on CPAP, this could be SALIMA - stat BMP shows normal bicarb, lower concern for hypercarbia. - likely due to baclofen b.i.d. We will make baclofen 5 q.h.s. only (hold off Trazodone) Anemia (ACD)- iron panel suggests ACD Hypertension- Renal diet GI prophylaxis-tolerating diet DVT prophylaxis-Lovenox Med tele Plan discussed with: Daughter, Son My Orders Orders - FREDO SEGURA MD Procedure Category Date Status Time R Rib Xray XY 08/31/24 Resulted 10:17 Baclofen Tablet PHA 08/31/24 In Process (Liorisal Tablet) 18:00 *Dr[facility] CONS 08/31/24 Transmitted -[place] 12:34 Date of Service: Aug 31, 2024 Billing Provider: FREDO SEGURA MD Common Visit Codes: [id number] INP/OBS CARE(HIGH) FREDO SEGURA MD Aug 31, 2024 22:34
[2024-09-01] VITALS (7 sets, daily range): BP systolic 111–150; BP diastolic 45–67; PULSE 61–69; RESP 17–18; TEMP 97.4–98.1; O2SAT 91–98
[2024-09-01 05:19] LABS: Basophils # (auto) 0.1 10 ^3/uL (0-0.2); Basophils % (auto) 1.1 % (0.0-2.0); Eosinophils # (auto) 0.3 10 ^3/uL (0-0.8); Eosinophils % (auto) 5.6 % (0.0-7.0); Hematocrit 24.6 % (36.0-46.0); Hemoglobin 8.5 g/dL (12.2-16.2); Lymphocytes # (auto) 1.4 10 ^3/uL (0.4-5.4); Mean Corpuscular Hgb Conc. 34.6 g/dL (32.0-36.0); Mean Corpuscular Volume 83.9 fL (80.0-100.0); Monocytes # (auto) 0.2 10 ^3/uL (0-1.3); Monocytes % (auto) 5.1 % (0.0-12.0); Neutrophils # (auto) 2.8 10 ^3/uL (1.6-8.6); Neutrophils % (auto) 59.2 % (37.0-80.0); Nucleated Red Blood Cells % 0.2 %; Platelet Count (auto) 181 10^3/uL (140-450); Red Blood Cells 2.94 10^6/uL (4.0-5.20); Red Cell Distribution Width 13.7 % (11.8-14.3); White Blood Cell 4.7 10^3/uL (4.4-10.8)
[2024-09-01 05:33] LABS: Anion Gap 6 (5-15); Carbon Dioxide 27 mmol/L (20-31); Chloride 103 mmol/L (98-107); Potassium 3.7 mmol/L (3.5-5.1); Sodium 136 mmol/L (136-145)
[2024-09-01 05:34] LABS: Calcium 8.2 mg/dL (8.7-10.4)
[2024-09-01 05:39] LABS: BUN/Creatinine Ratio 15.6 (10.0-20.0); Blood Urea Nitrogen 40 mg/dL (9-23); Glucose 98 mg/dL (74-106)
--- NOTE | 2024-09-01 12:28 | DVHPN2 ---
Reviewed: Care Plan, H&P, Labs Changes from previous H/P or p: No Changes General: Per HPI Objective Vitals Vital Signs Date Time Temp Pulse Resp B/P (MAP) Pulse Ox O2 Delivery O2 Flow Rate FiO2 09/01/24 09:24 62 141/67 09/01/24 09:00 98.1 17 98 98.1 08/31/24 20:00 Room Air* 0 21 Intake/Output Intake and Output 09/01/24 07:00 Intake Total 1400 ml Output Total 2200 ml Balance -800 ml Intake Oral 1100 ml IV Total 300 ml Output Urine Total 2200 ml Medications Current Medications Medications Dose Ordered Sig/Linda Route Start Time Stop Time Status Last Admin Dose Admin Atorvastatin Calcium 20 mg HS PO 08/28/24 22:00 08/31/24 21:13 20 MG Tamsulosin HCl 0.4 mg QPM PO 08/28/24 18:00 08/31/24 18:06 0.4 MG Aspirin 81 mg DAILY PO 08/28/24 10:00 09/01/24 09:24 81 MG Nifedipine 90 mg DAILY PO 08/28/24 10:00 09/01/24 09:23 90 MG Carvedilol 6.25 mg Q12HR PO 08/28/24 10:00 09/01/24 09:24 6.25 MG Pantoprazole Sodium 40 mg DAILY@0600 PO 08/28/24 06:00 09/01/24 06:13 40 MG Diagnostic Test (Pha) 1 strip ACHS 08/28/24 07:00 09/01/24 11:50 1 STRIP Insulin Human Regular ACHS SC 08/28/24 07:00 09/01/24 11:50 2 UNITS Dextrose 50 ml UD PRN IV 08/28/24 05:45 Ondansetron HCl 4 mg Q4HP PRN IV 08/28/24 05:45 Acetaminophen 650 mg Q6HP PRN PO 08/28/24 05:45 08/29/24 18:39 650 MG Nitroglycerin 0.4 mg Q5MINP PRN SL 08/28/24 05:45 Morphine Sulfate 2 mg Q30M PRN IV 08/28/24 05:45 Bumetanide 2 mg BIDD IV 08/28/24 11:45 09/01/24 06:15 2 MG Nitroglycerin 1 patch DAILY PRN TD 08/28/24 16:30 Ceftriaxone Sodium 50 ml @ 100 mls/hr DAILY@09 IV 08/30/24 09:00 09/01/24 09:22 100 MLS/HR Azithromycin 250 ml @ 125 mls/hr DAILY IV 08/30/24 10:00 09/01/24 09:22 125 MLS/HR Celecoxib 100 mg Q12HR PO 08/29/24 22:00 Hold Heparin Sodium (Porcine) 5,000 units BID SC 08/30/24 10:00 09/01/24 10:47 5,000 UNITS Trazodone HCl 50 mg HS PO 08/30/24 22:00 Baclofen 5 mg QPM PO 08/31/24 18:00 Laboratory Results Laboratory Tests 09/01/24 04:32 Chemistry Test 09/01/24 04:32 Calcium Level 8.2 mg/dL (8.7-10.4) L Urinalysis Test 08/28/24 12:36 Urine Color Yellow (Yellow) Urine Clarity Turbid (Clear) H Urine pH 5.5 (5.0-9.0) Urine Specific [place] 1.011 (1.001-1.035) Urine Protein 3+ (Negative) H Urine Ketones Negative (Negative) Urine Blood Negative /uL (Negative) Urine Nitrite Negative (Negative) Urine Bilirubin Negative (Negative) Urine Urobilinogen Normal mg/dL (Negative) Urine Leukocyte Esterase Negative /uL (Negative) Urine RBC <1 /hpf (0 - 4) Urine WBC 1 /hpf (0 - 5) Urine Squamous Epithelial Cells Few /hpf (<5) Urine Bacteria None seen /hpf (None Seen) Urine Creatinine 80.20 mg/dL (30.0-125.0) Urine Protein/Creatinine Ratio 4.46 Urine Sodium 45 mmol/L (40-220) Urine Glucose Trace mg/dL (Normal) Urine Total Protein 357.6 mg/dL (1-14) H Labs and/or images reviewed: Labs reviewed by me, Image(s) reviewed by me Assessment/Plan Assessment/Plan Acute kidney injury superimposed Chronic Kidney Disease secondary hemodynamic mediated-ongoing. Slight downtrend in creat 2.72. GFR 19 Severe diabetic nephropathy with nephrotic proteinuria, status post kidney biopsy which shows severe diabetic nephropathy, renal vein ultrasound rule out thrombosis result pending, Nephrology consult by appreciated Chronic diastolic heart failure Poorly controlled diabetes mellitus Uncontrolled hypertension Anemia of chronic Kidney disease PCP DR CLARK Plan discussed with: Patient Date of Service: Sep 01, 2024 Billing Provider: CORDELIA HEATR MD Common Visit Codes: [id number] INP/OBS CARE(HIGH) CORDELIA HEART MD Sep 01, 2024 12:28
--- NOTE | 2024-09-01 17:55 | MEDREC ---
[facility] Intervention Section I [facility] Intervention: Review courses of therapy (PLEASE CONSIDER D/C ANTIBIOTIC(S) IN ABSENCE OF BACTERIAL INFECTION) GINO RINALDI PHARMACIST Sep 01, 2024 17:55
--- NOTE | 2024-09-01 20:10 | DVHPN2 ---
Progress Note Date Seen: Sep 01, 2024 Medical Necessity Reason Pt with a Central, PICC or Fol: Yes The following are medically ne: Coffman Catheter Subjective Patient reports: No new complaints Review of Systems: HEENT:Normal, CVS:Normal, RESPIRATORY:Normal, GI:Normal, :Normal, MSK:Normal, NEURO:Normal Objective vital signs Vital Sign Date Time Temp Pulse Resp B/P (MAP) Pulse Ox O2 Delivery O2 Flow Rate FiO2 09/01/24 17:22 139/66 09/01/24 17:00 98.0 61 17 91 98.0 09/01/24 08:00 Room Air* 0 21 Total Intake and Output 08/31/24 08/31/24 09/01/24 15:00 23:00 07:00 Intake Total 300 ml 300 ml 800 ml Output Total 600 ml 1600 ml Balance 300 ml -300 ml -800 ml medications Current Medications Medications Dose Ordered Sig/Linda Route Start Time Stop Time Status Last Admin Dose Admin Atorvastatin Calcium 20 mg HS PO 08/28/24 22:00 08/31/24 21:13 20 MG Tamsulosin HCl 0.4 mg QPM PO 08/28/24 18:00 09/01/24 17:22 0.4 MG Aspirin 81 mg DAILY PO 08/28/24 10:00 09/01/24 09:24 81 MG Nifedipine 90 mg DAILY PO 08/28/24 10:00 09/01/24 09:23 90 MG Carvedilol 6.25 mg Q12HR PO 08/28/24 10:00 09/01/24 09:24 6.25 MG Pantoprazole Sodium 40 mg DAILY@0600 PO 08/28/24 06:00 09/01/24 06:13 40 MG Diagnostic Test (Pha) 1 strip ACHS 08/28/24 07:00 09/01/24 17:20 1 STRIP Insulin Human Regular ACHS SC 08/28/24 07:00 09/01/24 18:01 2 UNITS Dextrose 50 ml UD PRN IV 08/28/24 05:45 Ondansetron HCl 4 mg Q4HP PRN IV 08/28/24 05:45 Acetaminophen 650 mg Q6HP PRN PO 08/28/24 05:45 08/29/24 18:39 650 MG Nitroglycerin 0.4 mg Q5MINP PRN SL 08/28/24 05:45 Morphine Sulfate 2 mg Q30M PRN IV 08/28/24 05:45 Bumetanide 2 mg BIDD IV 08/28/24 11:45 09/01/24 17:22 2 MG Nitroglycerin 1 patch DAILY PRN TD 08/28/24 16:30 Ceftriaxone Sodium 50 ml @ 100 mls/hr DAILY@09 IV 08/30/24 09:00 09/01/24 09:22 100 MLS/HR Azithromycin 250 ml @ 125 mls/hr DAILY IV 08/30/24 10:00 09/01/24 09:22 125 MLS/HR Celecoxib 100 mg Q12HR PO 08/29/24 22:00 Hold Heparin Sodium (Porcine) 5,000 units BID SC 08/30/24 10:00 09/01/24 10:47 5,000 UNITS Trazodone HCl 50 mg HS PO 08/30/24 22:00 Baclofen 5 mg QPM PO 08/31/24 18:00 09/01/24 17:23 5 MG Examination: GENERAL:Normal, HEENT:Normal, NECK:Normal, LUNGS:Normal, CVS:Normal, ABDOMEN:Normal, MSK:Abnormal, SKIN:Normal, NEURO:Normal, :Normal laboratory and microbiology Laboratory Tests 09/01/24 04:32 Test 09/01/24 04:32 Range/Units Serum Glucose 98 74-106 mg/dL Problem List/Assessment/Plan Problem List/Assessment/Plan Acute kidney injury superimposed Chronic Kidney Disease secondary hemodynamic mediated Severe diabetic nephropathy with nephrotic proteinuria, status post kidney biopsy-diabetic neephropathy Chronic diastolic heart failure Poorly controlled diabetes mellitus Hypertension- Anemia of chronic Kidney disease Recommendations renal US neg for RVT Closely monitor fluid and electrolytes Avoid nephrotoxic medications/IV contrast if able Strict I&Os Continue diuretics Fluid restriction Renal diet Blood pressure control Plan discussed with: Patient Dietary Evaluation Review Comments: 1) Consider a Renal Specific K2,low phos,ELIDIA,2gNa,60gPro/Cardiac diet 2) Continue current plan of care Expected Outcomes/Goals: 1) Pt labs to improve 2) F/U in 3-5 days WILFRIDO GALLO MD Sep 01, 2024 20:10
[2024-09-02] VITALS (7 sets, daily range): BP systolic 127–148; BP diastolic 50–65; PULSE 58–74; RESP 17–18; TEMP 97.3–98; O2SAT 90–98
--- NOTE | 2024-09-02 11:08 | DVHPN2 ---
Reviewed: Care Plan, H&P, Labs Changes from previous H/P or p: No Changes General: Per HPI Objective Vitals Vital Signs Date Time Temp Pulse Resp B/P (MAP) Pulse Ox O2 Delivery O2 Flow Rate FiO2 09/02/24 09:15 147/50 09/02/24 09:14 74 09/02/24 09:00 97.5 18 95 97.5 09/01/24 20:00 Nasal Cannula* 2 28 Intake/Output Intake and Output 09/02/24 07:00 Intake Total 1340 ml Output Total 1650 ml Balance -310 ml Intake Oral 1040 ml IV Total 300 ml Output Urine Total 1650 ml Medications Current Medications Medications Dose Ordered Sig/Linda Route Start Time Stop Time Status Last Admin Dose Admin Atorvastatin Calcium 20 mg HS PO 08/28/24 22:00 09/01/24 21:45 20 MG Tamsulosin HCl 0.4 mg QPM PO 08/28/24 18:00 09/01/24 17:22 0.4 MG Aspirin 81 mg DAILY PO 08/28/24 10:00 09/02/24 09:15 81 MG Nifedipine 90 mg DAILY PO 08/28/24 10:00 09/02/24 09:15 90 MG Carvedilol 6.25 mg Q12HR PO 08/28/24 10:00 09/02/24 09:14 6.25 MG Pantoprazole Sodium 40 mg DAILY@0600 PO 08/28/24 06:00 09/02/24 05:51 40 MG Diagnostic Test (Pha) 1 strip ACHS 08/28/24 07:00 09/02/24 05:52 1 STRIP Insulin Human Regular ACHS SC 08/28/24 07:00 09/01/24 18:01 2 UNITS Dextrose 50 ml UD PRN IV 08/28/24 05:45 Ondansetron HCl 4 mg Q4HP PRN IV 08/28/24 05:45 Acetaminophen 650 mg Q6HP PRN PO 08/28/24 05:45 08/29/24 18:39 650 MG Nitroglycerin 0.4 mg Q5MINP PRN SL 08/28/24 05:45 Morphine Sulfate 2 mg Q30M PRN IV 08/28/24 05:45 Bumetanide 2 mg BIDD IV 08/28/24 11:45 09/02/24 05:47 2 MG Nitroglycerin 1 patch DAILY PRN TD 08/28/24 16:30 Ceftriaxone Sodium 50 ml @ 100 mls/hr DAILY@09 IV 08/30/24 09:00 09/02/24 09:08 100 MLS/HR Azithromycin 250 ml @ 125 mls/hr DAILY IV 08/30/24 10:00 09/02/24 10:56 125 MLS/HR Celecoxib 100 mg Q12HR PO 08/29/24 22:00 Hold Heparin Sodium (Porcine) 5,000 units BID SC 08/30/24 10:00 09/02/24 09:20 5,000 UNITS Trazodone HCl 50 mg HS PO 08/30/24 22:00 09/01/24 21:45 50 MG Baclofen 5 mg QPM PO 08/31/24 18:00 09/01/24 17:23 5 MG Laboratory Results Laboratory Tests 09/01/24 04:32 Urinalysis Test 08/28/24 12:36 Urine Color Yellow (Yellow) Urine Clarity Turbid (Clear) H Urine pH 5.5 (5.0-9.0) Urine Specific [place] 1.011 (1.001-1.035) Urine Protein 3+ (Negative) H Urine Ketones Negative (Negative) Urine Blood Negative /uL (Negative) Urine Nitrite Negative (Negative) Urine Bilirubin Negative (Negative) Urine Urobilinogen Normal mg/dL (Negative) Urine Leukocyte Esterase Negative /uL (Negative) Urine RBC <1 /hpf (0 - 4) Urine WBC 1 /hpf (0 - 5) Urine Squamous Epithelial Cells Few /hpf (<5) Urine Bacteria None seen /hpf (None Seen) Urine Creatinine 80.20 mg/dL (30.0-125.0) Urine Protein/Creatinine Ratio 4.46 Urine Sodium 45 mmol/L (40-220) Urine Glucose Trace mg/dL (Normal) Urine Total Protein 357.6 mg/dL (1-14) H Labs and/or images reviewed: Labs reviewed by me, Image(s) reviewed by me Assessment/Plan Assessment/Plan Acute kidney injury superimposed Chronic Kidney Disease secondary hemodynamic mediated-ongoing. Slight downtrend in creat 2.72. GFR 19 Severe diabetic nephropathy with nephrotic proteinuria, status post kidney biopsy which shows severe diabetic nephropathy, renal ultrasound negative for renal vein thrombosis, Nephrology consult by appreciated Chronic diastolic heart failure Poorly controlled diabetes mellitus Uncontrolled hypertension Anemia of chronic Kidney disease PCP DR CLARK Plan discussed with: Patient Date of Service: Sep 02, 2024 Billing Provider: CORDELIA HEART MD Common Visit Codes: [id number] INP/OBS CARE(HIGH) CORDELIA HEART MD Sep 02, 2024 11:08
[2024-09-02] MEDS ORDERED: BUME2TAB5 PO (11:11)
--- NOTE | 2024-09-02 11:19 | DVHDS2 ---
Discharge Summary Date of Admission Aug 28, 2024 at 05:48 Date of Discharge: Sep 02, 2024 Admitting Diagnosis Abdominal pain nausea vomiting and flank pain Wounds: None Labs/Diagnostic Data: Laboratory Results Test 09/02/24 05:36 09/01/24 04:32 08/31/24 09:29 08/28/24 12:36 POC Glucose 111 mg/dl (70-106) White Blood Count 4.7 10^3/uL (4.4-10.8) Red Blood Count 2.94 10^6/uL (4.0-5.20) Hemoglobin 8.5 g/dL (12.2-16.2) Hematocrit 24.6 % (36.0-46.0) Mean Corpuscular Volume 83.9 fL (80.0-100.0) Mean Corpuscular Hemoglobin 29.0 pg (28.0-32.0) Mean Corpuscular Hemoglobin Concent 34.6 g/dL (32.0-36.0) Red Cell Distribution Width 13.7 % (11.8-14.3) Platelet Count 181 10^3/uL (140-450) Mean Platelet Volume 10.2 fL (6.9-10.8) Neutrophils (%) (Auto) 59.2 % (37.0-80.0) Lymphocytes (%) (Auto) 29.0 % (10.0-50.0) Monocytes (%) (Auto) 5.1 % (0.0-12.0) Eosinophils (%) (Auto) 5.6 % (0.0-7.0) Basophils (%) (Auto) 1.1 % (0.0-2.0) Neutrophils # (Auto) 2.8 10 ^3/uL (1.6-8.6) Lymphocytes # (Auto) 1.4 10 ^3/uL (0.4-5.4) Monocytes # (Auto) 0.2 10 ^3/uL (0-1.3) Eosinophils # (Auto) 0.3 10 ^3/uL (0-0.8) Basophils # (Auto) 0.1 10 ^3/uL (0-0.2) Nucleated Red Blood Cells 0.2 % Sodium Level 136 mmol/L (136-145) Potassium Level 3.7 mmol/L (3.5-5.1) Chloride Level 103 mmol/L (98-107) Carbon Dioxide Level 27 mmol/L (20-31) Anion Gap 6 (5-15) Blood Urea Nitrogen 40 mg/dL (9-23) Creatinine 2.57 mg/dL (0.550-1.02) Glomerular Filtration Rate Calc 20 mL/min (>90) BUN/Creatinine Ratio 15.6 (10.0-20.0) Serum Glucose 98 mg/dL (74-106) Calcium Level 8.2 mg/dL (8.7-10.4) Total Bilirubin 0.4 mg/dL (0.2-1.0) Aspartate Amino Transferase (AST) 12 U/L (13-40) Alanine Aminotransferase (ALT) 11 U/L (7-40) Alkaline Phosphatase 93 U/L (46-116) Total Protein 5.4 g/dL (5.7-8.2) Albumin 2.9 g/dL (3.2-4.8) Urine Color Yellow (Yellow) Urine Clarity Turbid (Clear) Urine pH 5.5 (5.0-9.0) Urine Specific [place] 1.011 (1.001-1.035) Urine Protein 3+ (Negative) Urine Ketones Negative (Negative) Urine Blood Negative /uL (Negative) Urine Nitrite Negative (Negative) Urine Bilirubin Negative (Negative) Urine Urobilinogen Normal mg/dL (Negative) Urine Leukocyte Esterase Negative /uL (Negative) Urine RBC <1 /hpf (0 - 4) Urine WBC 1 /hpf (0 - 5) Urine Squamous Epithelial Cells Few /hpf (<5) Urine Bacteria None seen /hpf (None Seen) Urine Creatinine 80.20 mg/dL (30.0-125.0) Urine Protein/Creatinine Ratio 4.46 Urine Sodium 45 mmol/L (40-220) Urine Glucose Trace mg/dL (Normal) Urine Total Protein 357.6 mg/dL (1-14) Test 08/28/24 11:56 08/28/24 02:32 08/28/24 01:30 Uric Acid 10.7 mg/dL (3.1-7.8) Phosphorus Level 5.4 mg/dL (2.4-5.1) Magnesium Level 1.9 mg/dL (1.6-2.6) Iron Level 35 ug/dL (50-170) Total Iron Binding Capacity 236 ug/dL (250-425) Percent Iron Saturation 14.8 % (15-50) Ferritin 83.2 ng/mL (10-291) Vitamin D 25-Hydroxy 23.7 ng/mL (30.0-100) Parathyroid Hormone (Intact) 124.2 pg/mL (18.4-80.1) Hepatitis B Surface Antigen Negative (Negative) Hepatitis C Antibody Negative (Negative) Troponin I High Sensitivity 5 ng/L (</=34) Prothrombin Time 11.4 sec (9.3-11.8) Prothrombin Time INR 1.08 (0.9-1.15) Activated Partial Thromboplast Time 31.4 SEC (24.5-34.5) B-Type Natriuretic Peptide 127.59 pg/mL (0-100) Lipase 29 U/L (12-53) Plasma/Serum Blood Alcohol < 3.0 mg/dL (<10) Other Laboratory Tests 09/01/24 04:32 Brief Hx & Hospital Course: 64-year-old female with a history of hypertension diabetes hypercholesterolemia congestive heart failure chronic kidney disease stage 4 admitted for abdominal pain nausea vomiting and flank pain. Creatinine was high. Seen by Nephrology Dr. Noble patient was continued on home medications for comorbid conditions. 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 Renal ultrasound negative for renal vein thrombosis patient has significantly improved and feels better being discharged home. She will follow up with the her primary Dr and loan review analyst in 3-4 days. Prescription for bumetanide transmitted to the pharmacy. Reviewed all other home medications. Condition stable but poor at the time of discharge family member at bedside Consults/Reason for consult Nephrology Dr. Noble Operations or Procedures Renal ultrasound Condition at Discharge: Poor Final Diagnosis/Problems List Acute kidney injury superimposed Chronic Kidney Disease secondary hemodynamic mediated-ongoing. Slight downtrend in creat 2.72. GFR 19 Severe diabetic nephropathy with nephrotic proteinuria, status post kidney biopsy which shows severe diabetic nephropathy, renal ultrasound negative for renal vein thrombosis, Nephrology consult by appreciated Chronic diastolic heart failure Poorly controlled diabetes mellitus Uncontrolled hypertension Anemia of chronic Kidney disease Discharge Disposition: Home Discharge Instruct/Medications Diet: Renal Activity: Light activity Follow Up/Referral: Follow up With Nephrology Dr. Noble in 3-4 days Medications: Reviewed all previous home medications Bumetanide 2 mg p.o. b.i.d. number 30 transmitted to pharmacy 36 (time Taken for discharge summary 36 minutes) Discharge Statement: "Patient was advised to return to the ER or call 911 if any headaches, dizziness, shortness of breath, chest pain, abdominal pain, bleeding, fevers, or worsening of medical condition. Patient was counseled about treatment plan, medications, possible side effects, patientverbalized understanding. All questions were answered to the best of my ability. This discharge took greater then 30 minutes in planning, reviewing documentation, counseling the patient, and discussing with other team members." ASSESSMENT ASSESSMENT Hospital Course Improved marginally Assessment Acute kidney injury superimposed Chronic Kidney Disease secondary hemodynamic mediated-ongoing. Slight downtrend in creat 2.72. GFR 19 Severe diabetic nephropathy with nephrotic proteinuria, status post kidney biopsy which shows severe diabetic nephropathy, renal ultrasound negative for renal vein thrombosis, Nephrology consult by appreciated Chronic diastolic heart failure Poorly controlled diabetes mellitus Uncontrolled hypertension Anemia of chronic Kidney disease Date of Service: Sep 02, 2024 Billing Provider: CORDELIA HEART MD Common Visit Codes: 70162-GQC/OBS DISCH DAY >30min CORDELIA HEART MD Sep 02, 2024 11:19
== END 2024-09-02 17:55 | disposition home or self-care (01) | DRG 469 ==
LOC: ER 18:10 → EDUNIT# 18:10 → EDBD 18:10 → TELE 08-28 05:48 → TELE-WESTW 08-28 13:45
PROVIDERS: ADMIT Student in an Organized Health Care Education/Training Program; ATTEND Family Medicine
DX: N17.9 Acute kidney failure, unspecified (principal); I31.39 Other pericardial effusion (noninflammatory); R18.8 Other ascites; D63.1 Anemia in chronic kidney disease; I50.32 Chronic diastolic (congestive) heart failure; I13.0 Hypertensive heart and chronic kidney disease with heart failure and stage 1 through stage 4 chronic kidney disease, or unspecified chronic kidney disease; E11.22 Type 2 diabetes mellitus with diabetic chronic kidney disease; N18.4 Chronic kidney disease, stage 4 (severe); I50.82 Biventricular heart failure; E11.65 Type 2 diabetes mellitus with hyperglycemia; W18.39XA Other fall on same level, initial encounter; G47.10 Hypersomnia, unspecified; E78.00 Pure hypercholesterolemia, unspecified; Y93.89 Activity, other specified; Y92.89 Other specified places as the place of occurrence of the external cause; Y99.8 Other external cause status; Z83.3 Family history of diabetes mellitus; Z80.42 Family history of malignant neoplasm of prostate
CPT/HCPCS: 36415; 71045; 71101; 72070; 72080; 72100; 74176; 76775; 80048; 80053; 80320; 81001; 82306; 82570; 82728; 82962; 83540; 83550; 83690; 83735; 83880; 83970; 84100; 84156; 84300; 84484; 84550; 85025; 85610; 85730; 86803; 87340; 96372; 97163; 99291; G0378; J1815; J1885